=== PATIENT | male | born 1955 ===

== ENCOUNTER 2018-10-05 19:02 | Inpatient (IN) ==
[2018-10-05] MEDS ORDERED: SODIUM CHLORIDE 0.9% 1000ML 1,000 ML IV SCH (20:00)
--- NOTE | 2018-10-05 20:20 | XRay Report ---
XR chest 1V portable CLINICAL HISTORY: weakness COMPARISON STUDY: No previous studies for comparison. FINDINGS: A catheter projects over the right lower neck, right hemithorax and right upper quadrant. L carleen volumes are mildly diminished. There is no pneumothorax or pleural effusion. There is no consolid ation or evidence for pulmonary edema. There is mild cardiomegaly. There are several old left rib fra ctures. IMPRESSION: 1. No acute cardiopulmonary findings. 2. Mild cardiomegaly. Electronically signed by: Phillip Cifuentes M.D. 10/05/2018 8:19 PM
[2018-10-05 20:22] LABS: Basophils # (auto) 0.08 K/uL (0-0.2); Basophils % (auto) 0.9 %; Eosinophils # (auto) 0.26 K/uL (0-0.5); Eosinophils % (auto) 3.1 %; Hematocrit (blood only) 36.7 % (42-52); Hemoglobin 12.3 g/dL (14.0-18.0); Immature Granulocytes # (auto) 0.01 K/uL (0.00-0.02); Immature Granulocytes % (auto) 0.1 %; Lymphocytes # (auto) 1.58 K/uL (1.2-3.4); Lymphocytes % (auto) 18.6 %; Mean Corpuscular Hgb Conc 33.5 g/dL (32-36); Mean Corpuscular Volume 83.8 fL (80-100); Mean Platelet Volume 10.8 fL (7.4-10.4); Monocytes % (auto) 7.1 %; Neutrophils # (auto) 5.95 K/uL (1.4-6.5); Neutrophils % (auto) 70.2 %; Platelet Count 273 K/uL (130-400); RDW Coefficient of Variation 13.7 % (11.5-14.5); RDW Standard Deviation 41.3 fL (36.4-46.3); Red Blood Count 4.38 M/uL (4.7-6.1); White Blood Count 8.48 K/uL (4.8-10.8)
[2018-10-05 20:35] LABS: Albumin Level 3.6 gm/dl (3.4-5.0); BUN Creatinine Ratio 19.3 (10-20); Calcium 9.7 mg/dl (8.5-10.1); Creatinine Clr Calc Pharmacy 66.8 ml/min; Est GFR (African American) 65.2; Est GFR (Non-African American) 56.3; Magnesium 1.5 mg/dl (1.8-2.4); Potassium 4.5 mmol/L (3.5-5.1)
[2018-10-05 20:37] LABS: Prothrombin Time 10.7 Seconds (9.0-12.0)
[2018-10-05 20:45] LABS: Albumin Globulin Ratio 0.9 (0.9-2); Bilirubin,Total 0.4 mg/dl (0.2-1); Globulin 4.1 gm/dl (2.5-4.0); Total Protein 7.7 gm/dl (6.4-8.2); Troponin I 0.023 ng/ml (0-0.045)
[2018-10-05 20:58] LABS: T4 Free Thyroxine 1.38 ng/dl (0.8-1.6)
--- NOTE | 2018-10-05 21:24 | CT Scan Report ---
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 CT DOSE: 638.56 mGycm TECHNIQUE: Helical axial images of the head were obtained without IV contrast. Automated exposure con trol was utilized for the study. A dose lowering technique was utilized adhering to the principles o f ALARA. FINDINGS: No acute intracranial hemorrhage, midline shift or mass effect is present. A right parietal ventriculostomy catheter is in place. Catheter traverses the right lateral ventricle. The tip projec ts over the medial right frontal lobe. There is moderate ventricular dilatation. There are no finding s to suggest acute dural sinus thrombosis or acute territorial infarct. Mild atrophy is noted. There is no calvarial fracture. IMPRESSION: 1. No acute intracranial hemorrhage. 2. Right parietal [employer]IP[employer] SOFTWARE ENGINE[employer] shunt traverses the right lateral ventricle and tip projects over anterior medi al right frontal lobe. Moderate ventricular dilatation; however, only mildly out of proportion to sul thai enlargement. Correlation with prior head CT, if available, would be of benefit. 3. White matter hypodensities which are nonspecific but favor small vessel disease. Electronically signed by: Phillip Cifuentes M.D. 10/05/2018 9:23 PM
[2018-10-05 21:29] LABS: Appearance Urine Clear (Clear); Bacteria Urine Automated Negative (Negative); Bilirubin Urine Negative (Negative); Blood Urine Negative (Negative); Color Urine Yellow; Epithelial Cell Urine Auto >30 /lpf (0-5); Glucose Urine UA Trace (Negative); Ketones Urine Trace (Negative); Leukocyte Esterase Urine Trace (Negative); Nitrite Urine Negative (Negative); Protein Urine 1+ (Negative); RBC Urine Automated 0-4 /hpf (0-4); Specific Gravity Urine 1.024 (1.000-1.030); Urobilinogen Urine Negative (Negative)
--- NOTE | 2018-10-05 21:53 | History & Physical Report ---
Date of Service October 05, 2018 Assessment & Plan (1) Heart block: (2) Seizure: (3) Normal pressure hydrocephalus: (4) DM II (diabetes mellitus, type II), controlled: (5) BPH (benign prostatic hyperplasia): (6) UTI (urinary tract infection): (7) HTN (hypertension): (8) Diabetic neuropathy: (9) Falls: (10) Stool incontinence: (11) Urine retention: History of Present Illness Chief Complaint: Suspected seizure Primary Care Provider: NO PCP 63-year-old male with a past medical history of diabetes, hydrocephalus, seizure disorder per ER doc but I do not see any seizure medications on board, UTI and sepsis, iron deficiency anemia, benign prostatic hypertrophy, diabetes, hypertension, urine retention, stool incontinence, who presents the emergency room tonight from [facility] for suspected seizure and was found to be in heart block. The patient is a poor historian, old records revealed that he was in [facility] after a bout of UTI and sepsis and was getting physical therapy and occupational therapy for ADLs. He lives with his brother and used to be independent with his ADLs. Currently he needs a walker to walk. 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 Continue outpatient medications where appropriate, seizure precautions, Ativan as needed seizures. DVT prophylaxis, insulin sliding scale, straight cath twice daily, PT OT eval. ROS-No Headache, No Visual Changes, No Fever, No Chills, No Neck Pain or Stiffness, No Chest Pain, No Palpitations, No SOB, No FLORES, No Cough, No Sputum, No Wheezing, No Abdominal Pain, No Diarrhea, No Hematemesis, No Hemoptysis, No Unexpected Weight Loss, No Flank pain, No Melena, No Hematochezia, No Frequency, No Urgency, No Burning, No Hematuria, No Rashes, No Diaphoresis. Appetite is Normal Physical Exam Gen-AAO x 1, NAD, Afebrile, Pleasant Head-NCAT, EOMI, PERRLA, Anicteric Sclera, No Posterior Pharyngeal Erythema Neck-Supple, No JVD, No Thyromegaly, No Masses, No LAD, No Bruits Lungs-Clear to Auscultation Bilaterally, No Rales, No Rhonchi, No Wheezing, No Crepitus Chest-No S4, +S1, +S2, No S3, No Murmurs, No Rubs, No Gallops, No Ectopy Abdomen-Soft, Bowel Sounds Present, Non Tender, Non Distended, No Hepatomegaly, No Splenomegaly, No Palpable Masses, No Rebound, No Rigidity, No Guarding Musculoskeletal-Full Range of Motion Bilaterally, No CVAT Extremities-No Cyanosis, No Clubbing, No Edema Nuero-Cranial Nerves II-XII grossly intact, Motor WNL, DTRs WNL, Strength WNL, No Focal Psych-Normal Mood PMH-benign prostatic hypertrophy, diabetes, diabetic neuropathy, frequent falls, hypertension, normal pressure hydrocephalus, UTI and sepsis. 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 Meds reviewed and Reconciled Labs Reviewed Allergies Allergy/AdvReac Type Severity Reaction Status Date / Time tamsulosin Allergy Unknown Unknown Verified 10/05/18 21:35 Home Medications Home Medications Medication Instructions Recorded Confirmed Type acetaminophen 500 mg PO Q4H PRN 10/05/18 10/05/18 History aspirin 81 mg PO DAILY 10/05/18 10/05/18 History bisacodyl 10 mg ME DAILY PRN 10/05/18 10/05/18 History cefuroxime axetil 500 mg PO Q12H 10/05/18 10/05/18 History cholecalciferol (vitamin D3) 5,000 units PO DAILY 10/05/18 10/05/18 History [Vitamin D3] cyanocobalamin (vitamin B-12) 1,000 mcg PO DAILY 10/05/18 10/05/18 History dextrose [Glucose Gel] 1 tube PO DIRECTED PRN 10/05/18 10/05/18 History docusate sodium 100 mg PO BID PRN 10/05/18 10/05/18 History ferrous sulfate 325 mg PO DAILY 10/05/18 10/05/18 History finasteride 5 mg PO DAILY 10/05/18 10/05/18 History glipizide 5 mg PO DAILY 10/05/18 10/05/18 History glucagon (human recombinant) 1 mg SUBCUT DIRECTED PRN 10/05/18 10/05/18 History [Glucagon Emergency Kit (human)] heparin (porcine) 5,000 unit SUBCUT Q12H 10/05/18 10/05/18 History insulin aspart U-100 [Novolog 1 sliding scale dose SUBCUT ACHS 10/05/18 10/05/18 History U-100 Insulin aspart] lisinopril 40 mg PO DAILY 10/05/18 10/05/18 History magnesium hydroxide [Milk Of 30 ml PO DAILY PRN 10/05/18 10/05/18 History Magnesia Concentrated] metformin 850 mg PO QAM 10/05/18 10/05/18 History polyethylene glycol 3350 [Miralax] 17 g PO DAILY PRN 10/05/18 10/05/18 History sennosides-docusate sodium 1 tab PO DAILY 10/05/18 10/05/18 History [Senokot-S] sodium phosphates [Fleet Enema] 133 ml ME DAILY PRN 10/05/18 10/05/18 History Past Med/Surg History Medical History Seizure (Chronic) Social History Feels Safe at Home: Yes Smoking Status: Unknown if ever smoked Physical Exam Vital Signs (Past 24 Hours): Last Vital Signs Pulse 62 10/05/18 21:16 Resp 24 10/05/18 21:16 BP 169/84 H 10/05/18 21:16 Pulse Ox 99 10/05/18 21:16
[2018-10-05 22:29] LABS: Lyme Ab IgG w/WB Rflx Negative (Negative); Lyme Ab IgM w/WB Rflx Negative (Negative)
[2018-10-05] MEDS ORDERED: LORazepam 0.5 MG/1 ML VIAL IV PRN (23:48)
[2018-10-05] MEDS ORDERED: SOD PHOSPHATE/SOD BIPHOSPHATE ENEMA 132 ML BTL PR PRN (23:48)
[2018-10-05] MEDS ORDERED: CARBOHYDRATES FOR HYPOGLYCEMIA PO PRN (23:48)
[2018-10-05] MEDS ORDERED: GLUCAGON FOR INJ 1 MG VIAL SQ PRN (23:48)
[2018-10-05] MEDS ORDERED: POLYETHYLENE (MIRALAX) 17 GM PACK PO PRN (23:48)
[2018-10-05] MEDS ORDERED: BISACODYL 10 MG SUPP PR PRN (23:48)
[2018-10-05] MEDS ORDERED: ACETAMINOPHEN 500 MG TAB PO PRN (23:48)
[2018-10-05] MEDS ORDERED: DOCUSATE SODIUM 100 MG CAP PO PRN (23:48)
[2018-10-05] MEDS ORDERED: DEXTROSE 50% 50 ML SYRINGE IV PRN (23:48)
[2018-10-05] MEDS ORDERED: MAGNESIUM HYDROXIDE SUSP 30 ML UDC PO PRN (23:48)
[2018-10-05] MEDS ORDERED: GLUCOSE 40% GEL 15 GM TUBE PO PRN (23:48)
[2018-10-05] MEDS ORDERED: GLUCOSE 10 TABS/TUBE PO PRN (23:48)
--- NOTE | 2018-10-06 01:27 | Emergency Department Note ---
Entered by Cinthya Vergara acting as a scribe for ED Provider Note CHIEF COMPLAINT: Seizure-like episode HISTORY OF PRESENT ILLNESS: The patient is a 63 year old male who presents to the Emergency Room via EMS following a seizure-like episode that occurred prior to arrival. Per EMS, the episode occurred at [facility] and lasted 7 minutes. EMS also reports that during this episode the patient had garbled speech and was unresponsive and shaking. EMS notes that he has a history of seizures. Per EMS, the patients BSG was 146 prior to arrival. The patient denies any chest pain, headaches, neck pain, back pain, weakness, numbness, abdominal pain, leg pain, urinary symptoms, abnormal bowel movements. [facility] records reviewed: The patient was thereafter recovering from sepsis from a UTI. REVIEW OF SYSTEMS: Both HPI and ROS are both limited secondary to altered mental status. PMHx/PSHx: Seizures SOCIAL HISTORY: Unknown. PHYSICAL EXAM: GENERAL: Awake, alert, well-appearing, in no distress HENT: Normocephalic, atraumatic. Oropharynx unremarkable. EYES: Normal conjunctiva. Sclera non-icteric. NECK: Inspection normal. Non-tender. Supple. No nuchal rigidity. FROM. No masses. RESPIRATORY: Clear to auscultation. No wheezes. No rales. Normal respiratory effort. CARDIAC: Bradycardic. No murmurs. No rubs. Extremities warm and well perfused. Pulses equal. No JVD. GI: Soft, non-distended. No tenderness to palpation. No rebound or guarding. No masses. RECTAL: Deferred. MUSCULOSKELETAL: Atraumatic. Chest examination reveals no tenderness. The back is symmetrical on inspection without obvious abnormality. There is no CVA tenderness to palpation. No joint edema. LOWER EXTREMITIES: Calves are equal size bilaterally and non-tender. No edema. No discoloration. NEURO: Soft speech, slow to respond but able to answer all questions. 4/5 strength in upper and lower extremities. SKIN: No rash or jaundice noted. EMERGENCY DEPARTMENT COURSE: 1935: Past medical records reviewed. The patient was evaluated in room C10, and a complete history and physical examination were performed. 2029: I reviewed the patient's case with Dr. Cancino - Cardiology. He will call back after viewing the patient's EKG. 2048: I reviewed the patient's case with Dr. Cancino - Cardiology. He recommends admission of the patient for further cardiology workup. 2115: I reviewed the patient's case with Dr. Chaves - [facility] Hospitalist. He will evaluate the patient for further management. MEDICAL DECISION MAKING: Patient placed in seizure precautions immediately upon arrival. Nursing notes reviewed and agree them. The patient's history was concerning for a possible seizure. Differential diagnosis: Etiologies such as infection, hypoglycemia, electrolyte abnormalities, cardiac sources, intracerebral event, trauma, toxicologic, neurologic, as well as others were entertained. Physical examination: As above. No signs of trauma. ER treatment provided: Cardiac monitoring Pacer pads Saline hydration On reassessment the patient felt better. Diagnostics interpretation by me: ECG: Concerning for A-V dissociation and heart block. The patient was not significantly bradycardic. He was hemodynamically stable. The labs revealed an unremarkable CBC and chemistry panel except for mild anemia. Urinalysis did not reveal any clear signs of infection. Troponin negative. Imaging studies: Head CT and chest x-ray without acute findings. Consultation: Consultation was placed with cardiology as well as internal medicine. As the patient is hemodynamically stable he will be monitored for this heart block. Cardiology will consult on him. Internal medicine will follow the patient. IMPRESSION: Seizure, Heart block PLAN: Being evaluated by hospitalist. The scribe's documentation has been prepared under my direction and personally reviewed by me in its entirety. I confirm that the note above accurately reflects all work, treatment, procedures, and medical decision making performed by me. Impression & Plan Seizure, Heart block (Ruled Out): Generalized seizure Past Med/Surg History Medical History Seizure (Chronic) Social History Preferred Language: Azeri Communication Ability: Effective [employer] Layout Required: No Beliefs That Will Affect Care: None Current Living Situation: Rehab Other Information That Helps Us Care for You: No Feels Safe at Home: Yes Safety Concerns: Feels Safe At This Time Smoking Status: Never smoker Hx Alcohol Use: No Hx Substance Use: No Results & Data Vital Signs Vital Signs - 24 hr 10/05/18 19:09 10/05/18 19:10 10/05/18 19:14 Temperature Temperature Source Sepsis Recent Fever Within 48 Hours No Sepsis New/Unexplained Change in Mental Status Yes Sepsis Action Taken by Nursing No Action Required Pulse Rate 52 L 54 L 52 L Pulse Rate [Right Finger] Pulse Rate from SpO2 Sensor 52 L 54 L Pulse Rhythm Regular Pulse Strength Normal Respiratory Rate 18 18 21 Respiratory Effort / Characteristics Non-Labored Respiratory Depth Normal Respiratory Pattern Regular Blood Pressure 163/77 H 163/77 H Blood Pressure [Right Arm] Blood Pressure Mean 105 105 Blood Pressure Mean [Right Arm] Blood Pressure Position Lying Blood Pressure Position [Right Arm] Pulse Oximetry 99 98 96 Oxygen Delivery Method Room Air 10/05/18 19:30 10/05/18 20:00 10/05/18 20:30 Temperature Temperature Source Sepsis Recent Fever Within 48 Hours Sepsis New/Unexplained Change in Mental Status Sepsis Action Taken by Nursing Pulse Rate 53 L 57 L 56 L Pulse Rate [Right Finger] Pulse Rate from SpO2 Sensor 53 L 55 L 57 L Pulse Rhythm Pulse Strength Respiratory Rate 17 24 18 Respiratory Effort / Characteristics Respiratory Depth Respiratory Pattern Blood Pressure Blood Pressure [Right Arm] Blood Pressure Mean Blood Pressure Mean [Right Arm] Blood Pressure Position Blood Pressure Position [Right Arm] Pulse Oximetry 98 98 100 Oxygen Delivery Method 10/05/18 20:37 10/05/18 20:39 10/05/18 21:10 Temperature Temperature Source Sepsis Recent Fever Within 48 Hours Sepsis New/Unexplained Change in Mental Status Sepsis Action Taken by Nursing Pulse Rate 56 L 66 Pulse Rate [Right Finger] 57 L Pulse Rate from SpO2 Sensor 57 L Pulse Rhythm Pulse Strength Respiratory Rate 22 16 31 H Respiratory Effort / Characteristics Respiratory Depth Respiratory Pattern Blood Pressure 146/82 H Blood Pressure [Right Arm] 146/82 H Blood Pressure Mean 103 Blood Pressure Mean [Right Arm] 103 Blood Pressure Position Blood Pressure Position [Right Arm] Pulse Oximetry 96 100 Oxygen Delivery Method 10/05/18 21:16 10/05/18 21:30 10/05/18 21:31 Temperature Temperature Source Sepsis Recent Fever Within 48 Hours Sepsis New/Unexplained Change in Mental Status Sepsis Action Taken by Nursing Pulse Rate 61 62 61 Pulse Rate [Right Finger] 62 Pulse Rate from SpO2 Sensor 60 60 62 Pulse Rhythm Pulse Strength Respiratory Rate 28 H 10 L 8 L Respiratory Effort / Characteristics Non-Labored Respiratory Depth Normal Respiratory Pattern Regular Blood Pressure 169/84 H 123/67 Blood Pressure [Right Arm] 169/84 H Blood Pressure Mean 112 85 Blood Pressure Mean [Right Arm] 112 Blood Pressure Position Blood Pressure Position [Right Arm] Pulse Oximetry 92 78 L 96 Oxygen Delivery Method Room Air 10/05/18 22:00 10/05/18 22:01 10/05/18 23:08 Temperature Temperature Source Sepsis Recent Fever Within 48 Hours Sepsis New/Unexplained Change in Mental Status Sepsis Action Taken by Nursing Pulse Rate 59 L 59 L 58 L Pulse Rate [Right Finger] Pulse Rate from SpO2 Sensor 57 L 61 Pulse Rhythm Pulse Strength Respiratory Rate 18 15 18 Respiratory Effort / Characteristics Respiratory Depth Respiratory Pattern Blood Pressure 125/64 150/78 H Blood Pressure [Right Arm] Blood Pressure Mean 84 Blood Pressure Mean [Right Arm] Blood Pressure Position Blood Pressure Position [Right Arm] Pulse Oximetry 92 93 96 Oxygen Delivery Method Room Air 10/05/18 23:20 10/05/18 23:48 Temperature 36.2 C L Temperature Source Oral Sepsis Recent Fever Within 48 Hours Sepsis New/Unexplained Change in Mental Status Sepsis Action Taken by Nursing Pulse Rate Pulse Rate [Right Finger] 59 L Pulse Rate from SpO2 Sensor Pulse Rhythm Pulse Strength Respiratory Rate 16 Respiratory Effort / Characteristics Non-Labored Respiratory Depth Normal Normal Respiratory Pattern Blood Pressure Blood Pressure [Right Arm] 118/70 Blood Pressure Mean Blood Pressure Mean [Right Arm] 86 Blood Pressure Position Blood Pressure Position [Right Arm] Semi-fowlers Pulse Oximetry 100 Oxygen Delivery Method Room Air Room Air Home Medications Current Medication List: was personally reviewed by me Laboratory Data Attestation: I reviewed the patient's lab results. Result diagrams: 10/05/18 20:06 10/05/18 20:06 Lab Results 10/05/18 10/05/18 10/05/18 Range/Units 20:06 20:06 20:06 WBC 8.48 (4.8-10.8) K/uL RBC 4.38 L (4.7-6.1) M/uL Hgb 12.3 L (14.0-18.0) g/dL Hct 36.7 L (42-52) % MCV 83.8 (80-100) fL MCH 28.1 (25-34) pg MCHC 33.5 (32-36) g/dL RDW Std Deviation 41.3 (36.4-46.3) fL RDW Coeff of Hollie 13.7 (11.5-14.5) % Plt Count 273 (130-400) K/uL MPV 10.8 H (7.4-10.4) fL Immature Gran % (Auto) 0.1 % Neut % (Auto) 70.2 % Lymph % (Auto) 18.6 % Starke % (Auto) 7.1 % Eos % (Auto) 3.1 % Baso % (Auto) 0.9 % Immature Gran # (Auto) 0.01 (0.00-0.02) K/uL Neut # (Auto) 5.95 (1.4-6.5) K/uL Lymph # (Auto) 1.58 (1.2-3.4) K/uL Starke # (Auto) 0.60 H (0.11-0.59) K/uL Eos # (Auto) 0.26 (0-0.5) K/uL Baso # (Auto) 0.08 (0-0.2) K/uL PT 10.7 (9.0-12.0) Seconds INR 1.0 (0.9-1.1) Sodium 137 (136-145) mmol/L Potassium 4.5 (3.5-5.1) mmol/L Chloride 105 (98-107) mmol/L Carbon Dioxide 24 (21-32) mmol/L Anion Gap 8.0 (3-11) BUN 26 H (7-18) mg/dl Creatinine 1.35 (0.6-1.4) mg/dl Est Cr Clr Drug Dosing 66.8 ml/min Est GFR ( Amer) 65.2 Est GFR (Non-Af Amer) 56.3 BUN/Creatinine Ratio 19.3 (10-20) Glucose 147 H (70-99) mg/dl POC Glucose (70-99) Calcium 9.7 (8.5-10.1) mg/dl Magnesium 1.5 L (1.8-2.4) mg/dl Total Bilirubin 0.4 (0.2-1) mg/dl AST 20 (15-37) U/L ALT 23 (12-78) U/L Alkaline Phosphatase 67 (45-117) U/L Troponin I 0.023 (0-0.045) ng/ml Total Protein 7.7 (6.4-8.2) gm/dl Albumin 3.6 (3.4-5.0) gm/dl Globulin 4.1 H (2.5-4.0) gm/dl Albumin/Globulin Ratio 0.9 (0.9-2) TSH 5.580 H (0.300-4.500) uIu/ml Free T4 1.38 (0.8-1.6) ng/dl Thyroxine (T4) (4.5-10.9) mcg/dl Urine Color Urine Appearance (Clear) Urine pH (4.5-7.5) Ur Specific Verner (1.000-1.030) Urine Protein (Negative) Urine Glucose (UA) (Negative) Urine Ketones (Negative) Urine Blood (Negative) Urine Nitrite (Negative) Urine Bilirubin (Negative) Urine Urobilinogen (Negative) Ur Leukocyte Esterase (Negative) Urine WBC (Auto) (0-5) /hpf Urine RBC (Auto) (0-4) /hpf U Hyaline Cast (Auto) (0-5) /lpf U Epithel Cells (Auto) (0-5) /lpf Urine Bacteria (Auto) (Negative) Ur Renal Epithelial Cell Lyme Disease IgG Ab (Negative) Lyme Disease IgM Ab (Negative) 10/05/18 10/05/18 10/05/18 Range/Units 20:08 20:08 20:37 WBC (4.8-10.8) K/uL RBC (4.7-6.1) M/uL Hgb (14.0-18.0) g/dL Hct (42-52) % MCV (80-100) fL MCH (25-34) pg MCHC (32-36) g/dL RDW Std Deviation (36.4-46.3) fL RDW Coeff of Hollie (11.5-14.5) % Plt Count (130-400) K/uL MPV (7.4-10.4) fL Immature Gran % (Auto) % Neut % (Auto) % Lymph % (Auto) % Starke % (Auto) % Eos % (Auto) % Baso % (Auto) % Immature Gran # (Auto) (0.00-0.02) K/uL Neut # (Auto) (1.4-6.5) K/uL Lymph # (Auto) (1.2-3.4) K/uL Starke # (Auto) (0.11-0.59) K/uL Eos # (Auto) (0-0.5) K/uL Baso # (Auto) (0-0.2) K/uL PT (9.0-12.0) Seconds INR (0.9-1.1) Sodium (136-145) mmol/L Potassium (3.5-5.1) mmol/L Chloride (98-107) mmol/L Carbon Dioxide (21-32) mmol/L Anion Gap (3-11) BUN (7-18) mg/dl Creatinine (0.6-1.4) mg/dl Est Cr Clr Drug Dosing ml/min Est GFR ( Amer) Est GFR (Non-Af Amer) BUN/Creatinine Ratio (10-20) Glucose (70-99) mg/dl POC Glucose (70-99) Calcium (8.5-10.1) mg/dl Magnesium (1.8-2.4) mg/dl Total Bilirubin (0.2-1) mg/dl AST (15-37) U/L ALT (12-78) U/L Alkaline Phosphatase (45-117) U/L Troponin I (0-0.045) ng/ml Total Protein (6.4-8.2) gm/dl Albumin (3.4-5.0) gm/dl Globulin (2.5-4.0) gm/dl Albumin/Globulin Ratio (0.9-2) TSH (0.300-4.500) uIu/ml Free T4 (0.8-1.6) ng/dl Thyroxine (T4) 10.2 (4.5-10.9) mcg/dl Urine Color Yellow Urine Appearance Clear (Clear) Urine pH 5.0 (4.5-7.5) Ur Specific Verner 1.024 (1.000-1.030) Urine Protein 1+ H (Negative) Urine Glucose (UA) Trace H (Negative) Urine Ketones Trace H (Negative) Urine Blood Negative (Negative) Urine Nitrite Negative (Negative) Urine Bilirubin Negative (Negative) Urine Urobilinogen Negative (Negative) Ur Leukocyte Esterase Trace H (Negative) Urine WBC (Auto) 10-30 H (0-5) /hpf Urine RBC (Auto) 0-4 (0-4) /hpf U Hyaline Cast (Auto) 1-5 (0-5) /lpf U Epithel Cells (Auto) >30 H (0-5) /lpf Urine Bacteria (Auto) Negative (Negative) Ur Renal Epithelial Cell Not Reportable Lyme Disease IgG Ab Negative (Negative) Lyme Disease IgM Ab Negative (Negative) 10/06/18 Range/Units 00:10 WBC (4.8-10.8) K/uL RBC (4.7-6.1) M/uL Hgb (14.0-18.0) g/dL Hct (42-52) % MCV (80-100) fL MCH (25-34) pg MCHC (32-36) g/dL RDW Std Deviation (36.4-46.3) fL RDW Coeff of Hollie (11.5-14.5) % Plt Count (130-400) K/uL MPV (7.4-10.4) fL Immature Gran % (Auto) % Neut % (Auto) % Lymph % (Auto) % Starke % (Auto) % Eos % (Auto) % Baso % (Auto) % Immature Gran # (Auto) (0.00-0.02) K/uL Neut # (Auto) (1.4-6.5) K/uL Lymph # (Auto) (1.2-3.4) K/uL Starke # (Auto) (0.11-0.59) K/uL Eos # (Auto) (0-0.5) K/uL Baso # (Auto) (0-0.2) K/uL PT (9.0-12.0) Seconds INR (0.9-1.1) Sodium (136-145) mmol/L Potassium (3.5-5.1) mmol/L Chloride (98-107) mmol/L Carbon Dioxide (21-32) mmol/L Anion Gap (3-11) BUN (7-18) mg/dl Creatinine (0.6-1.4) mg/dl Est Cr Clr Drug Dosing ml/min Est GFR ( Amer) Est GFR (Non-Af Amer) BUN/Creatinine Ratio (10-20) Glucose (70-99) mg/dl POC Glucose 202 H (70-99) Calcium (8.5-10.1) mg/dl Magnesium (1.8-2.4) mg/dl Total Bilirubin (0.2-1) mg/dl AST (15-37) U/L ALT (12-78) U/L Alkaline Phosphatase (45-117) U/L Troponin I (0-0.045) ng/ml Total Protein (6.4-8.2) gm/dl Albumin (3.4-5.0) gm/dl Globulin (2.5-4.0) gm/dl Albumin/Globulin Ratio (0.9-2) TSH (0.300-4.500) uIu/ml Free T4 (0.8-1.6) ng/dl Thyroxine (T4) (4.5-10.9) mcg/dl Urine Color Urine Appearance (Clear) Urine pH (4.5-7.5) Ur Specific Verner (1.000-1.030) Urine Protein (Negative) Urine Glucose (UA) (Negative) Urine Ketones (Negative) Urine Blood (Negative) Urine Nitrite (Negative) Urine Bilirubin (Negative) Urine Urobilinogen (Negative) Ur Leukocyte Esterase (Negative) Urine WBC (Auto) (0-5) /hpf Urine RBC (Auto) (0-4) /hpf U Hyaline Cast (Auto) (0-5) /lpf U Epithel Cells (Auto) (0-5) /lpf Urine Bacteria (Auto) (Negative) Ur Renal Epithelial Cell Lyme Disease IgG Ab (Negative) Lyme Disease IgM Ab (Negative) Administered Medications Discontinued Medications Sodium Chloride (Nss 1000ml) 1,000 mls @ 999 mls/hr IV .Q1H1M HERNANDEZ Stop: 10/05/18 21:00 Last Infusion: 10/05/18 21:46 Dose: 0 mls/hr Documented by: [id number] Admin: 10/05/18 20:42 Dose: 999 mls/hr Documented by: [id number] Imaging Data Radiologist's Impression: Radiology results as stated below per my review and the radiologist's interpretation: XR chest 1V portable CLINICAL HISTORY: weakness COMPARISON STUDY: No previous studies for comparison. FINDINGS: A catheter projects over the right lower neck, right hemithorax and right upper quadrant. Lung volumes are mildly diminished. There is no pneumothorax or pleural effusion. There is no consolidation or evidence for pulmonary edema. There is mild cardiomegaly. There are several old left rib fractures. IMPRESSION: 1. No acute cardiopulmonary findings. 2. Mild cardiomegaly. Electronically signed by: Phillip Cifuentes M.D. 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 CT DOSE: 638.56 mGycm TECHNIQUE: Helical axial images of the head were obtained without IV contrast. Automated exposure control was utilized for the study. A dose lowering technique was utilized adhering to the principles of ALARA. FINDINGS: No acute intracranial hemorrhage, midline shift or mass effect is present. A right parietal ventriculostomy catheter is in place. Catheter traverses the right lateral ventricle. The tip projects over the medial right frontal lobe. There is moderate ventricular dilatation. There are no findings to suggest acute dural sinus thrombosis or acute territorial infarct. Mild atrophy is noted. There is no calvarial fracture. IMPRESSION: 1. No acute intracranial hemorrhage. 2. Right parietal [employer]ON[employer] shunt traverses the right lateral ventricle and tip projects over anterior medial right frontal lobe. Moderate ventricular dilatati on; however, only mildly out of proportion to sulcal enlargement. Correlation with prior head CT, if available, would be of benefit. 3. White matter hypodensities which are nonspecific but favor small vessel disease. Electronically signed by: Phillip Cifuentes M.D. 10/05/2018 9:23 PM ECG Data Attestation: I personally reviewed and interpreted this ECG as follows: Indication: syncope Rate (beats per minute): 53 Rhythm: AV dissociation and junctional Findings: no ST depression and no ST elevation Blood Pressure Blood Pressure Findings: Elevated blood pressure Blood Pressure Disposition: further management by hospitalist Discharge Plan Visit Data *Final* Discharge Date/Time: 10/05/18 23:08 Chief Complaint: Seizure ED Provider: Miguel Cool Discharge Problem: Seizure, Heart block Discharge Problem: (Ruled Out): Generalized seizure Patient Disposition: Admitted As Inpatient Discharge Instructions Interventions: ED Discharge Assessment Last Done: 10/05/18 23:08 The scribe's documentation has been prepared under my direction and personally reviewed by me in its entirety. I confirm that the note above accurately reflects all work, treatment, procedures, and medical decision making performed by me.
[2018-10-06] MEDS ORDERED: PHARMACY GLYCEMIC MGMT CONSULT PRN (01:44)
[2018-10-06] MEDS: cefTRIAXone SODIUM 1,000 MG in DEXTROSE 5% 50 ML IV SCH (02:26)
[2018-10-06] MEDS: MAGNESIUM OXIDE 400 MG TAB PO SCH ×3 (02:27→20:43)
[2018-10-06] MEDS: INSULIN ASPART 100 UNITS/ML 3 ML PEN SC SCH ×5 (02:28→20:42)
[2018-10-06 05:44] LABS: Hematocrit (blood only) 33.8 % (42-52); Hemoglobin 11.3 g/dL (14.0-18.0); Mean Corpuscular Hgb Conc 33.4 g/dL (32-36); Mean Corpuscular Volume 83.5 fL (80-100); Mean Platelet Volume 10.6 fL (7.4-10.4); Platelet Count 272 K/uL (130-400); RDW Coefficient of Variation 13.7 % (11.5-14.5); RDW Standard Deviation 41.8 fL (36.4-46.3); Red Blood Count 4.05 M/uL (4.7-6.1); White Blood Count 6.79 K/uL (4.8-10.8)
[2018-10-06] MEDS: HEPARIN SOD 5,000 UNIT/0.5 ML VIAL SQ SCH ×3 (06:02→20:43)
[2018-10-06 06:25] LABS: BUN Creatinine Ratio 24.6 (10-20); Calcium 8.8 mg/dl (8.5-10.1); Creatinine Clr Calc Pharmacy 91.6 ml/min; Est GFR (African American) 89.4; Est GFR (Non-African American) 77.1; Potassium 4.1 mmol/L (3.5-5.1)
[2018-10-06 06:43] LABS: Estimated Average Glucose 154 mg/dl
[2018-10-06] MEDS: ASPIRIN 81 MG ECTAB PO SCH (08:41)
[2018-10-06] MEDS: CYANOCOBALAMIN 500 MCG TABLET (VITAMIN B-12) PO SCH (08:41)
[2018-10-06] MEDS: FERROUS SULFATE 325 MG TAB PO SCH (08:41)
[2018-10-06] MEDS: LISINOPRIL 40 MG TAB PO SCH (08:41)
[2018-10-06] MEDS: FINASTERIDE 5 MG TAB PO SCH (08:42)
[2018-10-06] MEDS: DOCUSATE SODIUM/SENNA 50/8.6MG TAB PO SCH (08:42)
[2018-10-06] MEDS: CHOLECALCIFEROL 1,000 UNITS TAB PO SCH (08:42)
[2018-10-06] MEDS ORDERED: MAGNESIUM SULFATE / D5W 1 GM/100 ML BAG IV ONE (10:00)
--- NOTE | 2018-10-06 11:14 | Procedure Note ---
EEG Procedure Note Date of Service October 06, 2018 Start / End Times Start Time: 0745 End Time: 08 Referring Physician Miguel Diaz MD History possible seizure vs syncope in a man with new onset complete heart block and status pot remote [employer]GRAM [employer]GER shunt Home Medication List Home Medications Medication Instructions Recorded Confirmed Type acetaminophen 500 mg PO Q4H PRN 10/05/18 10/05/18 History aspirin 81 mg PO DAILY 10/05/18 10/05/18 History bisacodyl 10 mg IN DAILY PRN 10/05/18 10/05/18 History cefuroxime axetil 500 mg PO Q12H 10/05/18 10/05/18 History cholecalciferol (vitamin D3) 5,000 units PO DAILY 10/05/18 10/05/18 History [Vitamin D3] cyanocobalamin (vitamin B-12) 1,000 mcg PO DAILY 10/05/18 10/05/18 History dextrose [Glucose Gel] 1 tube PO DIRECTED PRN 10/05/18 10/05/18 History docusate sodium 100 mg PO BID PRN 10/05/18 10/05/18 History ferrous sulfate 325 mg PO DAILY 10/05/18 10/05/18 History finasteride 5 mg PO DAILY 10/05/18 10/05/18 History glipizide 5 mg PO DAILY 10/05/18 10/05/18 History glucagon (human recombinant) 1 mg SUBCUT DIRECTED PRN 10/05/18 10/05/18 History [Glucagon Emergency Kit (human)] heparin (porcine) 5,000 unit SUBCUT Q12H 10/05/18 10/05/18 History insulin aspart U-100 [Novolog 1 sliding scale dose SUBCUT ACHS 10/05/18 10/05/18 History U-100 Insulin aspart] lisinopril 40 mg PO DAILY 10/05/18 10/05/18 History magnesium hydroxide [Milk Of 30 ml PO DAILY PRN 10/05/18 10/05/18 History Magnesia Concentrated] metformin 850 mg PO QAM 10/05/18 10/05/18 History polyethylene glycol 3350 [Miralax] 17 g PO DAILY PRN 10/05/18 10/05/18 History sennosides-docusate sodium 1 tab PO DAILY 10/05/18 10/05/18 History [Senokot-S] sodium phosphates [Fleet Enema] 133 ml IN DAILY PRN 10/05/18 10/05/18 History Inpatient Medication List Aspirin (Ecotrin Ectab) 81 mg PO DAILY [facility] Stop: 11/05/18 08:59 Last Admin: 10/06/18 08:41 Dose: 81 mg Documented by: [id number] Cyanocobalamin (Vitamin B-12) 1,000 mcg PO DAILY [facility] Stop: 11/05/18 08:59 Last Admin: 10/06/18 08:41 Dose: 1,000 mcg Documented by: [id number] Ferrous Sulfate (Feosol) 325 mg PO DAILY [facility] Stop: 11/05/18 08:59 Last Admin: 10/06/18 08:41 Dose: 325 mg Documented by: [id number] Finasteride (Proscar) 5 mg PO DAILY [facility] Stop: 11/05/18 08:59 Last Admin: 10/06/18 08:42 Dose: 5 mg Documented by: [id number] Heparin Sodium (Porcine) (Heparin Sodium (Porcine)) 5,000 units SQ Q8 [facility] Stop: 11/05/18 05:59 Last Admin: 10/06/18 06:02 Dose: 5,000 units Documented by: [id number] Cosigned by: [id number] Ceftriaxone Sodium 1,000 mg/ (Dextrose) 50 mls @ 100 mls/hr IV Q24H [facility]; Protocol Stop: 10/16/18 01:59 Last Infusion: 10/06/18 03:30 Dose: 0 mls/hr Documented by: [id number] Admin: 10/06/18 02:26 Dose: 100 mls/hr Documented by: [id number] Insulin Aspart (Novolog Flexpen) 0 units SC ACHS [facility]; Protocol Stop: 11/05/18 01:44 Last Admin: 10/06/18 09:05 Dose: Not Given Documented by: [id number] Cosigned by: [id number] Admin: 10/06/18 02:28 Dose: 3 units Documented by: [id number] Cosigned by: [id number] Lisinopril (Zestril) 40 mg PO DAILY [facility] Stop: 11/05/18 08:59 Last Admin: 10/06/18 08:41 Dose: 40 mg Documented by: [id number] Magnesium Oxide (Mag-Ox) 400 mg PO BID [facility] Stop: 11/04/18 23:47 Last Admin: 10/06/18 08:42 Dose: 400 mg Documented by: [id number] Admin: 10/06/18 02:27 Dose: 400 mg Documented by: [id number] Senna/Docusate Sodium (Senokot S) 1 tab PO DAILY [facility] Stop: 11/05/18 08:59 Last Admin: 10/06/18 08:42 Dose: 1 tab Documented by: [id number] Vitamin D (Vitamin D3) 5,000 units PO DAILY [facility] Stop: 11/05/18 08:59 Last Admin: 10/06/18 08:42 Dose: 5,000 units Documented by: [id number] Discontinued Medications Sodium Chloride (Nss 1000ml) 1,000 mls @ 999 mls/hr IV .Q1H1M [facility] Stop: 10/05/18 21:00 Last Infusion: 10/05/18 21:46 Dose: 0 mls/hr Documented by: [id number] Admin: 10/05/18 20:42 Dose: 999 mls/hr Documented by: [id number] Description This is a 21 electrode EEG with a single channel dedicated to limited EKG. The electrodes were placed in accordance with the International 10-20 system. The study is done at the [facility] with no photic stimulation or hyperventilation and no clear evidence for drowsiness or sleep being seen Video recording captures movements and behavior throughout the tracing Overall the recording show a slow, symmetrical, posterior background rhythm in the upper theta range of upt to 8 HZ, a symmetrical central and temporal theta delta blend of modest amplitude wave forms and bifraontal low voltage fast activity in the beta range There is no evidence for any potentially epilepto genic activity Interpretation mildly to moderately diffusely slow eeg during wakefulness Clinical Correlation Mild to at most moderate generalized slowing without focal or regional predominance and without associated potentially epiliptogenic patterns is seen consistent with a nonspecific encephalopathy with no associated potential seizure activity Miguel Diaz MD
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
--- NOTE | 2018-10-06 13:59 | Cardiology Consultation ---
Date of Consultation October 06, 2018 Assessment & Plan (1) Normal pressure hydrocephalus: The patient has a history of progressive weakness and dementia related to his normal pressure hydrocephalus. (2) Heart block: It is possible that the patient's seizure activity was related to conduction disease of the heart. His heart block may be below the AV node even though it is mostly as wenkebach on telemetry. Before we would consider a pacemaker, I think the patient should be seen by palliative care to discuss goals of treatment with the family. I believe he may have a progressive neurologic disease that should be considered before placing a device. At this time, I do not believe that his progressive neurologic disease has resulted in his heart block that would resolve potentially with treatment of his neurologic disease. History of Present Illness Attending Physician: Carlos Chadwick MD History of Present Illness This is a 63-year-old male patient with normal pressure hydrocephalus status post shunt placement. He has a history of gait disturbance, weakness and dementia. Over the past several months he has had a progressive downhill course. He was admitted to [facility] with progressive weakness. He was then transferred over to [facility] for rehabilitation. Of note, while at [place], according to records he was seen by cardiology for heart block and it was determined he did not require pacemaker. While at [facility], he had what is described as a seizure. He was then transferred to this hospital for further evaluation and treatment. Neurology has evaluated him and they feel he is not having seizure activity. After admission here he is noted to have wenkebach on telemetry but also Mobitz type II block. On his EKG he does have a left anterior hemiblock. It is possible that his conduction abnormality may be below the AV node which would require pacemaker. The patient is not a great historian and therefore the information has been taken from the medical record. Allergies Allergy/AdvReac Type Severity Reaction Status Date / Time tamsulosin Allergy Unknown Unknown Verified 10/05/18 21:35 Home Medications Home Medications Medication Instructions Recorded Confirmed Type acetaminophen 500 mg PO Q4H PRN 10/05/18 10/05/18 History aspirin 81 mg PO DAILY 10/05/18 10/05/18 History bisacodyl 10 mg ME DAILY PRN 10/05/18 10/05/18 History cefuroxime axetil 500 mg PO Q12H 10/05/18 10/05/18 History cholecalciferol (vitamin D3) 5,000 units PO DAILY 10/05/18 10/05/18 History [Vitamin D3] cyanocobalamin (vitamin B-12) 1,000 mcg PO DAILY 10/05/18 10/05/18 History dextrose [Glucose Gel] 1 tube PO DIRECTED PRN 10/05/18 10/05/18 History docusate sodium 100 mg PO BID PRN 10/05/18 10/05/18 History ferrous sulfate 325 mg PO DAILY 10/05/18 10/05/18 History finasteride 5 mg PO DAILY 10/05/18 10/05/18 History glipizide 5 mg PO DAILY 10/05/18 10/05/18 History glucagon (human recombinant) 1 mg SUBCUT DIRECTED PRN 10/05/18 10/05/18 History [Glucagon Emergency Kit (human)] heparin (porcine) 5,000 unit SUBCUT Q12H 10/05/18 10/05/18 History insulin aspart U-100 [Novolog 1 sliding scale dose SUBCUT ACHS 10/05/18 10/05/18 History U-100 Insulin aspart] lisinopril 40 mg PO DAILY 10/05/18 10/05/18 History magnesium hydroxide [Milk Of 30 ml PO DAILY PRN 10/05/18 10/05/18 History Magnesia Concentrated] metformin 850 mg PO QAM 10/05/18 10/05/18 History polyethylene glycol 3350 [Miralax] 17 g PO DAILY PRN 10/05/18 10/05/18 History sennosides-docusate sodium 1 tab PO DAILY 10/05/18 10/05/18 History [Senokot-S] sodium phosphates [Fleet Enema] 133 ml ME DAILY PRN 10/05/18 10/05/18 History Patient History Medical History Seizure (Chronic) Social History Communication Ability: Effective Beliefs That Will Affect Care: None Current Living Situation: Rehab Other Information That Helps Us Care for You: No Feels Safe at Home: Yes Safety Concerns: Feels Safe At This Time Smoking Status: Never smoker Hx Alcohol Use: No Hx Substance Use: No Review of Systems Unobtainable Physical Exam Vital Signs (Past 24 Hours): Last Vital Signs Temp 36.8 C 10/06/18 11:27 Pulse 42 L 10/06/18 11:27 Resp 20 10/06/18 11:27 BP 145/80 H 10/06/18 11:27 Pulse Ox 99 10/06/18 11:27 Physical Exam: General: He is alert but cannot answer questions. Head: normocephalic, no masses, lesions, tenderness or abnormalities Eyes: conjunctiva are pink and non-injected, sclera clear Neck: supple, no adenopathy, no bruits, normal jugular venous pulse, no hepatojugular reflux Chest: normal shape and normal respiratory effort Lungs: clear to auscultation and percussion Cardiac Exam: - regular rate & rhythm, no murmurs gallops or rubs - normal S1, normal S2 Pulses: 2(+) throughout Abdomen: abdomen soft, non-tender, no abnormal masses and no hepatosplenomegaly Musculoskeletal: no gait disturbance, no joint inflammation, no deforming arthritis Extremities: no edema and no cyanosis Neuro: grossly normal exam Results & Data Laboratory Results Laboratory Results - last 24 hr 10/05/18 10/05/18 10/05/18 20:06 20:06 20:06 WBC 8.48 RBC 4.38 L Hgb 12.3 L Hct 36.7 L MCV 83.8 MCH 28.1 MCHC 33.5 RDW Std Deviation 41.3 RDW Coeff of Hollie 13.7 Plt Count 273 MPV 10.8 H Immature Gran % (Auto) 0.1 Neut % (Auto) 70.2 Lymph % (Auto) 18.6 Butts % (Auto) 7.1 Eos % (Auto) 3.1 Baso % (Auto) 0.9 Immature Gran # (Auto) 0.01 Neut # (Auto) 5.95 Lymph # (Auto) 1.58 Butts # (Auto) 0.60 H Eos # (Auto) 0.26 Baso # (Auto) 0.08 PT 10.7 INR 1.0 Sodium 137 Potassium 4.5 Chloride 105 Carbon Dioxide 24 Anion Gap 8.0 BUN 26 H Creatinine 1.35 Est Cr Clr Drug Dosing 66.8 Est GFR ( Amer) 65.2 Est GFR (Non-Af Amer) 56.3 BUN/Creatinine Ratio 19.3 Glucose 147 H POC Glucose Estimat Average Glucose Hemoglobin A1c Calcium 9.7 Magnesium 1.5 L Total Bilirubin 0.4 AST 20 ALT 23 Alkaline Phosphatase 67 Troponin I 0.023 Total Protein 7.7 Albumin 3.6 Globulin 4.1 H Albumin/Globulin Ratio 0.9 TSH 5.580 H Free T4 1.38 Thyroxine (T4) Urine Color Urine Appearance Urine pH Ur Specific [place] Urine Protein Urine Glucose (UA) Urine Ketones Urine Blood Urine Nitrite Urine Bilirubin Urine Urobilinogen Ur Leukocyte Esterase Urine WBC (Auto) Urine RBC (Auto) U Hyaline Cast (Auto) U Epithel Cells (Auto) Urine Bacteria (Auto) Ur Renal Epithelial Cell Nasal Screen MRSA (PCR) Lyme Disease IgG Ab Lyme Disease IgM Ab 10/05/18 10/05/18 10/05/18 20:08 20:08 20:37 WBC RBC Hgb Hct MCV MCH MCHC RDW Std Deviation RDW Coeff of Hollie Plt Count MPV Immature Gran % (Auto) Neut % (Auto) Lymph % (Auto) Butts % (Auto) Eos % (Auto) Baso % (Auto) Immature Gran # (Auto) Neut # (Auto) Lymph # (Auto) Butts # (Auto) Eos # (Auto) Baso # (Auto) PT INR Sodium Potassium Chloride Carbon Dioxide Anion Gap BUN Creatinine Est Cr Clr Drug Dosing Est GFR ( Amer) Est GFR (Non-Af Amer) BUN/Creatinine Ratio Glucose POC Glucose Estimat Average Glucose Hemoglobin A1c Calcium Magnesium Total Bilirubin AST ALT Alkaline Phosphatase Troponin I Total Protein Albumin Globulin Albumin/Globulin Ratio TSH Free T4 Thyroxine (T4) 10.2 Urine Color Yellow Urine Appearance Clear Urine pH 5.0 Ur Specific [place] 1.024 Urine Protein 1+ H Urine Glucose (UA) Trace H Urine Ketones Trace H Urine Blood Negative Urine Nitrite Negative Urine Bilirubin Negative Urine Urobilinogen Negative Ur Leukocyte Esterase Trace H Urine WBC (Auto) 10-30 H Urine RBC (Auto) 0-4 U Hyaline Cast (Auto) 1-5 U Epithel Cells (Auto) >30 H Urine Bacteria (Auto) Negative Ur Renal Epithelial Cell Not Reportable Nasal Screen MRSA (PCR) Lyme Disease IgG Ab Negative Lyme Disease IgM Ab Negative 10/05/18 10/06/18 10/06/18 23:35 00:10 02:25 WBC RBC Hgb Hct MCV MCH MCHC RDW Std Deviation RDW Coeff of Hollie Plt Count MPV Immature Gran % (Auto) Neut % (Auto) Lymph % (Auto) Butts % (Auto) Eos % (Auto) Baso % (Auto) Immature Gran # (Auto) Neut # (Auto) Lymph # (Auto) Butts # (Auto) Eos # (Auto) Baso # (Auto) PT INR Sodium Potassium Chloride Carbon Dioxide Anion Gap BUN Creatinine Est Cr Clr Drug Dosing Est GFR ( Amer) Est GFR (Non-Af Amer) BUN/Creatinine Ratio Glucose POC Glucose 202 H 203 H Estimat Average Glucose Hemoglobin A1c Calcium Magnesium Total Bilirubin AST ALT Alkaline Phosphatase Troponin I Total Protein Albumin Globulin Albumin/Globulin Ratio TSH Free T4 Thyroxine (T4) Urine Color Urine Appearance Urine pH Ur Specific [place] Urine Protein Urine Glucose (UA) Urine Ketones Urine Blood Urine Nitrite Urine Bilirubin Urine Urobilinogen Ur Leukocyte Esterase Urine WBC (Auto) Urine RBC (Auto) U Hyaline Cast (Auto) U Epithel Cells (Auto) Urine Bacteria (Auto) Ur Renal Epithelial Cell Nasal Screen MRSA (PCR) Negative Lyme Disease IgG Ab Lyme Disease IgM Ab 10/06/18 10/06/18 10/06/18 05:28 05:28 05:28 WBC 6.79 RBC 4.05 L Hgb 11.3 L Hct 33.8 L MCV 83.5 MCH 27.9 MCHC 33.4 RDW Std Deviation 41.8 RDW Coeff of Hollie 13.7 Plt Count 272 MPV 10.6 H Immature Gran % (Auto) Neut % (Auto) Lymph % (Auto) Butts % (Auto) Eos % (Auto) Baso % (Auto) Immature Gran # (Auto) Neut # (Auto) Lymph # (Auto) Butts # (Auto) Eos # (Auto) Baso # (Auto) PT INR Sodium 141 Potassium 4.1 Chloride 110 H Carbon Dioxide 25 Anion Gap 6.0 BUN 26 H Creatinine 1.04 Est Cr Clr Drug Dosing 91.6 Est GFR ( Amer) 89.4 Est GFR (Non-Af Amer) 77.1 BUN/Creatinine Ratio 24.6 H Glucose 149 H POC Glucose Estimat Average Glucose Hemoglobin A1c Calcium 8.8 Magnesium Total Bilirubin AST ALT Alkaline Phosphatase Troponin I 0.031 Total Protein Albumin Globulin Albumin/Globulin Ratio TSH Free T4 Thyroxine (T4) Urine Color Urine Appearance Urine pH Ur Specific [place] Urine Protein Urine Glucose (UA) Urine Ketones Urine Blood Urine Nitrite Urine Bilirubin Urine Urobilinogen Ur Leukocyte Esterase Urine WBC (Auto) Urine RBC (Auto) U Hyaline Cast (Auto) U Epithel Cells (Auto) Urine Bacteria (Auto) Ur Renal Epithelial Cell Nasal Screen MRSA (PCR) Lyme Disease IgG Ab Lyme Disease IgM Ab 10/06/18 10/06/18 10/06/18 05:28 05:28 07:36 WBC RBC Hgb Hct MCV MCH MCHC RDW Std Deviation RDW Coeff of Hollie Plt Count MPV Immature Gran % (Auto) Neut % (Auto) Lymph % (Auto) Butts % (Auto) Eos % (Auto) Baso % (Auto) Immature Gran # (Auto) Neut # (Auto) Lymph # (Auto) Butts # (Auto) Eos # (Auto) Baso # (Auto) PT INR Sodium Potassium Chloride Carbon Dioxide Anion Gap BUN Creatinine Est Cr Clr Drug Dosing Est GFR ( Amer) Est GFR (Non-Af Amer) BUN/Creatinine Ratio Glucose POC Glucose 130 H Estimat Average Glucose 154 Hemoglobin A1c 7.0 H Calcium Magnesium 1.7 L Total Bilirubin AST ALT Alkaline Phosphatase Troponin I Total Protein Albumin Globulin Albumin/Globulin Ratio TSH Free T4 Thyroxine (T4) Urine Color Urine Appearance Urine pH Ur Specific [place] Urine Protein Urine Glucose (UA) Urine Ketones Urine Blood Urine Nitrite Urine Bilirubin Urine Urobilinogen Ur Leukocyte Esterase Urine WBC (Auto) Urine RBC (Auto) U Hyaline Cast (Auto) U Epithel Cells (Auto) Urine Bacteria (Auto) Ur Renal Epithelial Cell Nasal Screen MRSA (PCR) Lyme Disease IgG Ab Lyme Disease IgM Ab 10/06/18 11:30 WBC RBC Hgb Hct MCV MCH MCHC RDW Std Deviation RDW Coeff of Hollie Plt Count MPV Immature Gran % (Auto) Neut % (Auto) Lymph % (Auto) Butts % (Auto) Eos % (Auto) Baso % (Auto) Immature Gran # (Auto) Neut # (Auto) Lymph # (Auto) Butts # (Auto) Eos # (Auto) Baso # (Auto) PT INR Sodium Potassium Chloride Carbon Dioxide Anion Gap BUN Creatinine Est Cr Clr Drug Dosing Est GFR ( Amer) Est GFR (Non-Af Amer) BUN/Creatinine Ratio Glucose POC Glucose 116 H Estimat Average Glucose Hemoglobin A1c Calcium Magnesium Total Bilirubin AST ALT Alkaline Phosphatase Troponin I Total Protein Albumin Globulin Albumin/Globulin Ratio TSH Free T4 Thyroxine (T4) Urine Color Urine Appearance Urine pH Ur Specific [place] Urine Protein Urine Glucose (UA) Urine Ketones Urine Blood Urine Nitrite Urine Bilirubin Urine Urobilinogen Ur Leukocyte Esterase Urine WBC (Auto) Urine RBC (Auto) U Hyaline Cast (Auto) U Epithel Cells (Auto) Urine Bacteria (Auto) Ur Renal Epithelial Cell Nasal Screen MRSA (PCR) Lyme Disease IgG Ab Lyme Disease IgM Ab Medications Administered Current Inpatient Medications Acetaminophen (Tylenol) 500 mg PO Q4H PRN PRN Reason: Unknown Stop: 11/04/18 23:47 Aspirin (Ecotrin Ectab) 81 mg PO DAILY HERNANDEZ Stop: 11/05/18 08:59 Last Admin: 10/06/18 08:41 Dose: 81 mg Documented by: Bisacodyl (Dulcolax) 10 mg ME DAILY PRN PRN Reason: Constipation Stop: 11/04/18 23:47 Cyanocobalamin (Vitamin B-12) 1,000 mcg PO DAILY HERNANDEZ Stop: 11/05/18 08:59 Last Admin: 10/06/18 08:41 Dose: 1,000 mcg Documented by: Dextrose (Dextrose 50%) 25 - 50 ml IV UD PRN; Protocol PRN Reason: Hypoglycemia Protocol Stop: 11/04/18 23:47 Docusate Sodium (Colace) 100 mg PO BID PRN PRN Reason: Constipation Stop: 11/04/18 23:47 Ferrous Sulfate (Feosol) 325 mg PO DAILY HERNANDEZ Stop: 11/05/18 08:59 Last Admin: 10/06/18 08:41 Dose: 325 mg Documented by: Finasteride (Proscar) 5 mg PO DAILY HERNANDEZ Stop: 11/05/18 08:59 Last Admin: 10/06/18 08:42 Dose: 5 mg Documented by: Glucagon (Glucagen) 1 mg SQ UD PRN; Protocol PRN Reason: Hypoglycemia Protocol Stop: 11/04/18 23:47 Glucose (Glucose 40%) 15 - 30 gm PO UD PRN; Protocol PRN Reason: Hypoglycemia Protocol Stop: 11/04/18 23:47 Glucose (Dex4 Glucose) 4 - 8 tabs PO UD PRN; Protocol PRN Reason: Hypoglycemia Protocol Stop: 11/04/18 23:47 Heparin Sodium (Porcine) (Heparin Sodium (Porcine)) 5,000 units SQ Q8 HERNANDEZ Stop: 11/05/18 05:59 Last Admin: 10/06/18 13:58 Dose: 5,000 units Documented by: Lorazepam (Ativan) 0.5 mg in 1 mls @ 1 mls/min IV Q4H PRN PRN Reason: Breakthrough Seizures Stop: 11/04/18 23:47 Ceftriaxone Sodium 1,000 mg/ (Dextrose) 50 mls @ 100 mls/hr IV Q24H [facility]; Protocol Stop: 10/16/18 01:59 Last Infusion: 10/06/18 03:30 Dose: Infused Documented by: Insulin Aspart (Novolog Flexpen) 0 units SC ACHS [facility]; Protocol Stop: 11/05/18 01:44 Last Admin: 10/06/18 11:59 Dose: Not Given Documented by: Lisinopril (Zestril) 40 mg PO DAILY [facility] Stop: 11/05/18 08:59 Last Admin: 10/06/18 08:41 Dose: 40 mg Documented by: Magnesium Hydroxide (Milk Of Magnesia) 30 ml PO DAILY PRN PRN Reason: Constipation Stop: 11/05/18 23:47 Magnesium Oxide (Mag-Ox) 400 mg PO BID [facility] Stop: 11/04/18 23:47 Last Admin: 10/06/18 08:42 Dose: 400 mg Documented by: Miscellaneous (Carbohydrates For Hypoglycemia) 15 - 30 gm PO UD PRN PRN Reason: Hypoglycemia Treatment Stop: 11/04/18 23:47 Miscellaneous Information (Consult Glycemic Management Pharmacy) 1 ea N/A UD PRN; Protocol PRN Reason: Consult Stop: 11/05/18 01:43 Polyethylene Glycol (Miralax Powder Packet) 17 gm PO DAILY PRN PRN Reason: Constipation Stop: 11/04/18 23:47 Senna/Docusate Sodium (Senokot S) 1 tab PO DAILY [facility] Stop: 11/05/18 08:59 Last Admin: 10/06/18 08:42 Dose: 1 tab Documented by: Sodium Biphosphate/Sodium Phosphate (Fleet Enema) 133 ml ME DAILY PRN PRN Reason: Constipation Stop: 11/04/18 23:47 Vitamin D (Vitamin D3) 5,000 units PO DAILY [facility] Stop: 11/05/18 08:59 Last Admin: 10/06/18 08:42 Dose: 5,000 units Documented by:
--- NOTE | 2018-10-06 15:10 | Palliative Care Progress Note ---
Date of Service October 06, 2018 Subjective Chart reviewed, pt seen and examined briefly Pt is not capable of making medical decisions. Pt named his brother, Suhail, as his help with medical decisions. Pt stated he was told at [facility] , that he did not need a pacemaker, he did know some details about his PMH such as his shunt, etc., but is not able to give details Pt gave the correct month , but year was 2008. Will try to contact pt's brother regarding any medical decisions. Agree with Neurology that we need further information from prior work up. Will cont to follow and assist with medical decision making. Physical Exam Vital Signs (Past 24 Hours): Last Vital Signs Temp 36.8 C 10/06/18 11:27 Pulse 42 L 10/06/18 11:27 Resp 20 10/06/18 11:27 BP 145/80 H 10/06/18 11:27 Pulse Ox 99 10/06/18 11:27
--- NOTE | 2018-10-06 15:30 | Pharmacy Report ---
Pharmacy Glycemic Short Note 2 - Date of Service October 06, 2018 - Glycemic Short BSG Results (Last 24 hours): 10/05/18 10/06/18 10/06/18 20:06 00:10 02:25 Glucose 147 H POC Glucose 202 H 203 H 10/06/18 10/06/18 10/06/18 05:28 07:36 11:30 Glucose 149 H POC Glucose 130 H 116 H OUTPATIENT ANTIDIABETIC REGIMEN: * Novolog SSI * glipizide 5 mg daily * metformin 850 mg qAM * A1c 7% ASSESSMENT: * 63 yr old T2DM male on Novolog plus oral anti-diabetic agents at home * BSGs at goal after receiving only 3 units of Novolog early this morning. Poor oral intake. * Will withhold basal insulin at this time since the only fasting BSG we have is 130 mg/dL. * Continue Novolog per weight/stress 2. May need to loosen carb ratio once patient starts eating. PLAN FOR INPATIENT GLYCEMIC CONTROL: * Hold outpatient oral diabetes medications * Basal insulin * none at this time * Bolus insulin * NovoLog per scale ACHS or Q6hrs while NPO * Goal Range: Low 110 mg/dL - High 140 mg/dL * Correction Factor: 25 mg/dL/unit * Nutritional / Prandial insulin per carb ratio of 1 unit per 8 grams CHO consumed thank you
--- NOTE | 2018-10-06 16:57 | Hospitalist Progress Note ---
Date of Service October 06, 2018 Assessment & Plan (1) Heart block: Heart Block: Questionable--secondary to Seizure activity Not on any AV evita blocking agents Consider pacemaker placement if appropriate Palliative care consulted to identify goals of care Appreciate Cardiology Input Will obtain old records from [facility] Avoid AV evita blocking agents Seizure like activity NPH S/P UTILITY AGENT shunting in [place] Unknown baseline mental status EEG: no focal seizure activity --CT Head:No acute intracranial hemorrhage. 2. Right parietal UTILITY AGENT shunt traverses the right lateral ventricle and tip projects over anterior medial right frontal lobe. Moderate ventricular dilatation; however, only mildly out of proportion to sulcal enlargement. Correlation with prior head CT, if available, would be of benefit. 3. White matter hypodensities which are nonspecific but favor small vessel disease. --Elevated TSH, Normal Free T4 --Seizure precuations --Ativan PRN --Appreciate Neurology Input --Obtain old records --needs follow up with Neurology/Neurosurgery upon discharge --No anti seizure meds for now --May need MRI brain when more stable Hypomagnesemia: Replace electrolytes as needed UTI::Less likely Was started on Empiric Rocephin Await for final cultures DM II: Hb A1C: 7.0 Hold PO meds Continue ISS while hospitalized HTN: Stable Continue home meds Urinary Retention: Straight Cath PRN Bladder scan PRN Frequent [place] precuations PT/OT DVT Px: Heparin SQ Code Status DNR Disposition: To be determined Subjective Patient is seen and examined at bedside No meaningful history could be obtained Patient had no seizure like activity since admission Heart rate in 40-50s Patient is oriented to person EEG showed no focal seizure activity Physical Exam Vital Signs (Past 24 Hours): Last Vital Signs Temp 36.8 C 10/06/18 15:41 Pulse 59 L 10/06/18 15:41 Resp 20 10/06/18 15:41 BP 145/67 H 10/06/18 15:41 Pulse Ox 92 10/06/18 15:41 Physical Exam: Physical Exam: Vitals signs as noted above General Appearance:Moderately built and nourished, no apparent distress Head: normocephalic, Atraumatic Eyes: normal inspection, EOMI Neck: supple, Trachea midline Respiratory/Chest: coarse breath sounds, CTA Cardiovascular: S1, S2, No murmur, +bradycardia Abdomen/GI:Soft, Non tender, Bowel sounds present Extremities/Musculoskelatal:normal inspection, no edema Neurologic/Psych:Moves all extremities, complete neuro exam coul dnot be performed Skin: normal color, warm Results & Data Laboratory Results Short CBC 10/05/18 10/06/18 Range/Units 20:06 05:28 WBC 8.48 6.79 (4.8-10.8) K/uL Hgb 12.3 L 11.3 L (14.0-18.0) g/dL Hct 36.7 L 33.8 L (42-52) % Plt Count 273 272 (130-400) K/uL BMP 10/05/18 10/06/18 20:06 05:28 Sodium 137 141 Potassium 4.5 4.1 Chloride 105 110 H Carbon Dioxide 24 25 BUN 26 H 26 H Creatinine 1.35 1.04 Glucose 147 H 149 H Calcium 9.7 8.8 Cardiac Enzymes 10/05/18 10/06/18 Range/Units 20:06 05:28 Troponin I 0.023 0.031 (0-0.045) ng/ml Liver Function 10/05/18 Range/Units 20:06 Total Bilirubin 0.4 (0.2-1) mg/dl AST 20 (15-37) U/L ALT 23 (12-78) U/L Alkaline Phosphatase 67 (45-117) U/L Albumin 3.6 (3.4-5.0) gm/dl Urine 10/05/18 Range/Units 20:37 Urine Color Yellow Urine Appearance Clear (Clear) Urine pH 5.0 (4.5-7.5) Ur Specific [place] 1.024 (1.000-1.030) Urine Protein 1+ H (Negative) Urine Glucose (UA) Trace H (Negative) Diagnostic Findings CT head: 1. No acute intracranial hemorrhage. 2. Right parietal UTILITY AGENT shunt traverses the right lateral ventricle and tip projects over anterior medial right frontal lobe. Moderate ventricular dilatation; however, only mildly out of proportion to sulcal enlargement. Correlation with prior head CT, if available, would be of benefit. 3. White matter hypodensities which are nonspecific but favor small vessel disease. CXR: 1. No acute cardiopulmonary findings. 2. Mild cardiomegaly.
[2018-10-07] MEDS: cefTRIAXone SODIUM 1,000 MG in DEXTROSE 5% 50 ML IV SCH (01:45)
[2018-10-07] MEDS: HEPARIN SOD 5,000 UNIT/0.5 ML VIAL SQ SCH ×3 (05:15→21:37)
[2018-10-07 05:31] LABS: Hematocrit (blood only) 31.8 % (42-52); Hemoglobin 10.5 g/dL (14.0-18.0); Mean Corpuscular Volume 82.6 fL (80-100); Mean Platelet Volume 10.5 fL (7.4-10.4); Platelet Count 243 K/uL (130-400); RDW Coefficient of Variation 13.6 % (11.5-14.5); RDW Standard Deviation 41.2 fL (36.4-46.3); Red Blood Count 3.85 M/uL (4.7-6.1); White Blood Count 5.62 K/uL (4.8-10.8)
[2018-10-07 05:49] LABS: BUN Creatinine Ratio 19.6 (10-20); Calcium 8.4 mg/dl (8.5-10.1); Creatinine Clr Calc Pharmacy 94.3 ml/min; Est GFR (African American) 92.6; Est GFR (Non-African American) 79.9; Magnesium 1.8 mg/dl (1.8-2.4)
[2018-10-07] MEDS: DOCUSATE SODIUM/SENNA 50/8.6MG TAB PO SCH (07:36)
[2018-10-07] MEDS: LISINOPRIL 40 MG TAB PO SCH (07:36)
[2018-10-07] MEDS: CHOLECALCIFEROL 1,000 UNITS TAB PO SCH (07:38)
[2018-10-07] MEDS: FINASTERIDE 5 MG TAB PO SCH (07:38)
[2018-10-07] MEDS: CYANOCOBALAMIN 500 MCG TABLET (VITAMIN B-12) PO SCH (07:40)
[2018-10-07] MEDS: FERROUS SULFATE 325 MG TAB PO SCH (07:41)
[2018-10-07] MEDS: ASPIRIN 81 MG ECTAB PO SCH (07:41)
[2018-10-07] MEDS: MAGNESIUM OXIDE 400 MG TAB PO SCH ×2 (07:41→20:09)
[2018-10-07] MEDS: INSULIN ASPART 100 UNITS/ML 3 ML PEN SC SCH ×4 (08:26→20:49)
--- NOTE | 2018-10-07 10:11 | Communication Note ---
Date of Service: October 07, 2018 I have seen Mr. Shaw today. He has been moved to room 229. He has been seen by cardiology. He is also been seen by palliative medicine. They like we agree that he is not competent to make medical decisions but when presented with the option of having his brother make decisions today he was adamantly against it. Even if cardiology would begin to recommend a pacemaker I do not think he is capable of making an informed decision regarding excepting or denying at and it appears that this is going to be a social service issue all before we can do mu ch else. I agree this man appears at least by the superficial history I have available, to have a progressive neurologic disorder of ill-defined type which has been of course resistant to shunting for presumptive normal pressure hydrocephalus. Again we have no prior records of imaging studies neurologic consultations neurosurgical consultations etc. available from his evaluations in [place] and I see no value in repeating these now if indeed to have been done in the recent past Currently he is less confused than he was yesterday but still knows only that he is in the hospital, does not know the location, is only vague recollection of a shunting procedure really does not recall being at [facility] rehabilitation and does not have any strong focal neurologic signs other than perhaps mild lower extremity apraxia when asked to perform certain motor movements and of course his global cognitive impairment which is fairly profound At this point neurology is going to sign off until we have information available from [place] to review. I would ask the hospitalist to make request for this information and to let us know when it arrives I do not want to start this mental anti-epileptic drugs at this point. Because of his seizure activity may well have been symptomatic bradycardia with global cerebral hypoperfusion. There is nothing on EEG that suggest anything more than a mild to moderate generalized nonspecific and nonfocal encephalopathy without associated potentially epileptogenic activity and with a marginal history in this EEG I certainly have no basis to start anticonvulsant therapy unless we would observe unequivocal clinical seizure while here at [facility]. Miguel Diaz MD
--- NOTE | 2018-10-07 17:00 | Cardiology Progress Note ---
Date of Service October 07, 2018 Assessment & Plan (1) Heart block: Stable 2-1 AV block without hemodynamic compromise at present. The patient states that he does not want to have a pacemaker performed. 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 We will continue to follow clinically. Subjective Chief complaint: Follow-up bradycardia Subjective: Patient seen and examined. He is comfortable and pleasantly confus ed. Denies any subjective complaints. Telemetry reveals sinus bradycardia with 2-1 AV block block and rate in the 40 bpm range. Blood pressure is stable with most of his systolic blood pressure readings recently in the range of the 150s. Physical Exam Vital Signs (Past 24 Hours): Last Vital Signs Temp 36.8 C 10/07/18 16:01 Pulse 37 L 10/07/18 16:01 Resp 18 10/07/18 16:01 BP 152/67 H 10/07/18 16:01 Pulse Ox 99 10/07/18 16:01 Respiratory: normal respiratory effort, lungs clear to auscultation Cardiovascular: Rate/Rhythm: regular rate and + bradycardic Heart Sounds: no murmur Extremities: no edema Gastrointestinal (Abdomen): normal bowel sounds, soft, nontender, no hepatosplenomegaly Neurologic: Confused, follows commands
--- NOTE | 2018-10-07 17:11 | Hospitalist Progress Note ---
Date of Service October 07, 2018 Assessment & Plan (1) Heart block: Heart Block: 2-1 AV block Questionable--secondary to Seizure activity Not on any AV evita blocking agents Patient prefers no pacemaker placement Palliative care consulted to identify goals of care Appreciate Cardiology Input Requested old records from [facility] Avoid AV evita blocking agents Seizure like activity NPH S/P MEDIA THEORIST AND AUTHOR OF shunting in [place] Unknown baseline mental status EEG: no focal seizure activity --CT Head:No acute intracranial hemorrhage. 2. Right parietal MEDIA THEORIST AND AUTHOR OF shunt traverses the right lateral ventricle and tip projects over anterior medial right frontal lobe. Moderate ventricular dilatation; however, only mildly out of proportion to sulcal enlargement. Correlation with prior head CT, if available, would be of benefit. 3. White matter hypodensities which are nonspecific but favor small vessel disease. --Elevated TSH, Normal Free T4 --Seizure precuations --Ativan PRN --Appreciate Neurology Input --Requested old records --needs follow up with Neurology/Neurosurgery upon discharge --No anti seizure meds for now --May need MRI brain when more stable Hypomagnesemia: Replace electrolytes as needed UTI::Ruled out Discontinue Rocephin Urine Culture: No growth to date DM II: Hb A1C: 7.0 Hold PO meds Continue ISS while hospitalized HTN: Stable Continue home meds Urinary Retention: Straight Cath PRN Bladder scan PRN Frequent [place] precuations PT/OT DVT Px: Heparin SQ Code Status DNR Disposition: To be determined Subjective Patient is seen and examined at bedside Seemed to less confused today No distress during my exam Patient had no seizure like activity since admission Heart rate in 40 Oriented to person only Requested old records Physical Exam Vital Signs (Past 24 Hours): Last Vital Signs Temp 36.8 C 10/07/18 16:01 Pulse 37 L 10/07/18 16:01 Resp 18 10/07/18 16:01 BP 152/67 H 10/07/18 16:01 Pulse Ox 99 10/07/18 16:01 Physical Exam: Physical Exam: Vitals signs as noted above General Appearance:Moderately built and nourished, no apparent distress Head: normocephalic, Atraumatic Eyes: normal inspection, EOMI Neck: supple, Trachea midline Respiratory/Chest: coarse breath sounds, CTA Cardiovascular: S1, S2, No murmur, +bradycardia Abdomen/GI:Soft, Non tender, Bowel sounds present Extremities/Musculoskelatal:normal inspection, no edema Neurologic/Psych:Moves all extremities, complete neuro exam could not be performed Skin: normal color, warm Results & Data Laboratory Results Short CBC 10/07/18 Range/Units 04:56 WBC 5.62 (4.8-10.8) K/uL Hgb 10.5 L (14.0-18.0) g/dL Hct 31.8 L (42-52) % Plt Count 243 (130-400) K/uL BMP 10/07/18 04:56 Sodium 137 Potassium 4.0 Chloride 107 Carbon Dioxide 26 BUN 20 H Creatinine 1.01 Glucose 110 H Calcium 8.4 L
[2018-10-08] MEDS: HEPARIN SOD 5,000 UNIT/0.5 ML VIAL SQ SCH ×3 (05:41→21:09)
[2018-10-08 06:17] LABS: Hematocrit (blood only) 35.7 % (42-52); Hemoglobin 12.1 g/dL (14.0-18.0)
[2018-10-08 06:45] LABS: BUN Creatinine Ratio 18.6 (10-20); Calcium 9.3 mg/dl (8.5-10.1); Creatinine Clr Calc Pharmacy 103.5 ml/min; Est GFR (African American) 103.7; Est GFR (Non-African American) 89.5; Magnesium 1.8 mg/dl (1.8-2.4); Potassium 4.1 mmol/L (3.5-5.1)
[2018-10-08] MEDS: CHOLECALCIFEROL 1,000 UNITS TAB PO SCH (08:03)
[2018-10-08] MEDS: MAGNESIUM OXIDE 400 MG TAB PO SCH ×2 (08:03→19:43)
[2018-10-08] MEDS: ASPIRIN 81 MG ECTAB PO SCH (08:03)
[2018-10-08] MEDS: CYANOCOBALAMIN 500 MCG TABLET (VITAMIN B-12) PO SCH (08:03)
[2018-10-08] MEDS: FERROUS SULFATE 325 MG TAB PO SCH (08:04)
[2018-10-08] MEDS: DOCUSATE SODIUM/SENNA 50/8.6MG TAB PO SCH (08:04)
[2018-10-08] MEDS: FINASTERIDE 5 MG TAB PO SCH (08:04)
[2018-10-08] MEDS: LISINOPRIL 40 MG TAB PO SCH (08:04)
[2018-10-08] MEDS: INSULIN ASPART 100 UNITS/ML 3 ML PEN SC SCH ×4 (08:06→20:32)
--- NOTE | 2018-10-08 09:29 | Pharmacy Report ---
Pharmacy Glycemic Short Note 2 - Date of Service October 08, 2018 - Glycemic Short BSG Results (Last 24 hours): 10/07/18 10/07/18 10/07/18 11:24 16:31 20:24 Glucose POC Glucose 142 H 150 H 137 H 10/08/18 05:14 Glucose 125 H POC Glucose OUTPATIENT ANTIDIABETIC REGIMEN: * Novolog SSI * glipizide 5 mg daily * metformin 850 mg qAM * A1c 7% ASSESSMENT: * Pt required 9 units of insulin yesterday, BSGs continue to look good. Nil changes in clinical status that require adjustments in standing insulin orders. PLAN FOR INPATIENT GLYCEMIC CONTROL: * Hold outpatient oral diabetes medications * Basal insulin * none indicated at this juncture * Bolus insulin * NovoLog per scale ACHS or Q6hrs while NPO * Goal Range: Low 110 mg/dL - High 140 mg/dL * Correction Factor: 25 mg/dL/unit * Nutritional / Prandial insulin per carb ratio of 1 unit per 8 grams CHO consumed Pharmacy will continue to follow along with you
--- NOTE | 2018-10-08 13:46 | Cardiology Progress Note ---
Date of Service October 08, 2018 Assessment & Plan (1) Heart block: Patient presented with seizure activity. He has been found to have bradycardia with 2-1 AV block, currently his ventricular rate is stable in the range of 45-50 bpm. Repeat EKG was performed today confirming the presence of 2-1 AV block. Lyme serologies performed this hospital stay were negative. I had a long discussion with the patient regarding the details of his problems with the conduction system. I specifically told him that while his heart rate is stable at this point, he could develop a progressive dysfunction of his cardiac conduction system that would lead to life-threatening bradycardia including his heart stopping. He specifically tells me that he does not want to have a pacemaker. He tells me he would not want to have CPR or have intervention if his heart "stops ". Is difficult to tell if the patient has the capacity to make such a decision, but I do not think it would be appropriate to perform pacemaker against his wishes. We will continue to follow. I am not certain if this is been a past long- standing issue that has been dealt with. The patient obviously has a complex past medical history and has a ventricular peritoneal shunt. Overall, I tend to recommend that the most appropriate thing for this patient is for transfer back to his home institution would be in his best interest. I feel we are dealing with potential end of life issues, and the providers familiar with his case and have a long standing relationship with him would be able to offer him the best guidance. Subjective Chief complaint: Follow-up bradycardia Subjective: Patient seen and examined. He is aware that he is in the hospital. He is conversant. He was able to provide his home address to me. He told me that he lives with his brother Suhail. Although his responses definitely required concentration, they were appropriate. He moved his lower extremities and his arms on command. Physical Exam Vital Signs (Past 24 Hours): Last Vital Signs Temp 36.4 C L 10/08/18 11:56 Pulse 48 L 10/08/18 11:56 Resp 18 10/08/18 11:56 BP 132/80 10/08/18 11:56 Pulse Ox 100 10/08/18 11:56 Constitutional: + ill appearing; no acute distress Respiratory: normal respiratory effort, lungs clear to auscultation Cardiovascular: Rate/Rhythm: + bradycardic Extremities: + edema No murmurs Neurologic: Cognitive impairment noted, but patient capable of following com mands, moves all 4 extremities
--- NOTE | 2018-10-08 17:09 | Hospitalist Progress Note ---
Date of Service October 08, 2018 Assessment & Plan (1) Heart block: Heart Block: 2-1 AV block Questionable--secondary to Seizure activity Lyme Screen: Negative Not on any AV evita blocking agents Patient prefers no pacemaker placement or CPR Palliative care consulted to identify goals of care Appreciate Cardiology Input Requested old records from [facility]-- pending Avoid AV evita blocking agents Seizure like activity NPH S/P HISTORICAL MANUSCRIPTS CURATOR shunting in [place] Unknown baseline mental status EEG: no focal seizure activity --CT Head:No acute intracranial hemorrhage. 2. Right parietal HISTORICAL MANUSCRIPTS CURATOR shunt traverses the right lateral ventricle and tip projects over anterior medial right frontal lobe. Moderate ventricular dilatation; however, only mildly out of proportion to sulcal enlargement. Correlation with prior head CT, if available, would be of benefit. 3. White matter hypodensities which are nonspecific but favor small vessel disease. --Elevated TSH, Normal Free T4 --Seizure precuations --Ativan PRN --Appreciate Neurology Input --Requested old records --needs follow up with Neurology/Neurosurgery upon discharge --No anti seizure meds for now --May need MRI brain when more stable --Mental status continues to improve Hypomagnesemia: Replace electrolytes as needed Monitor UTI::Ruled out Discontinue Rocephin Urine Culture: No growth to date DM II: Hb A1C: 7.0 Hold PO meds Continue ISS while hospitalized HTN: Stable Continue home meds Urinary Retention: Straight Cath PRN [place] precuations PT/OT DVT Px: Heparin SQ Code Status DNR Disposition: To be determined Subjective Patient is seen and examined at bedside Mental status continues to improve Patient had no seizure like activity since admission Bradycardia on exam Oriented to person and place today Requested old records from [facility] Clearly states that he would not prefers to have pacemaker placement No new complaints Physical Exam Vital Signs (Past 24 Hours): Last Vital Signs Temp 36.4 C L 10/08/18 15:56 Pulse 48 L 10/08/18 15:56 Resp 16 10/08/18 15:56 BP 164/78 H 10/08/18 15:56 Pulse Ox 100 10/08/18 15:56 Physical Exam: Physical Exam: Vitals signs as noted above General Appearance:Moderately built and nourished, no apparent distress Head: normocephalic, Atraumatic Eyes: normal inspection, EOMI Neck: supple, Trachea midline Respiratory/Chest: coarse breath sounds, CTA Cardiovascular: S1, S2, No murmur, +bradycardia Abdomen/GI:Soft, Non tender, Bowel sounds present Extremities/Musculoskelatal:normal inspection, no edema Neurologic/Psych:Grossly no focal deficits Skin: normal color, warm Results & Data Laboratory Results Short CBC 10/08/18 Range/Units 05:14 Hgb 12.1 L (14.0-18.0) g/dL Hct 35.7 L (42-52) % BMP 10/08/18 05:14 Sodium 139 Potassium 4.1 Chloride 109 H Carbon Dioxide 25 BUN 17 Creatinine 0.92 Glucose 125 H Calcium 9.3
[2018-10-09] MEDS: HEPARIN SOD 5,000 UNIT/0.5 ML VIAL SQ SCH ×3 (05:16→20:58)
[2018-10-09 05:50] LABS: Hematocrit (blood only) 32.2 % (42-52); Hemoglobin 10.8 g/dL (14.0-18.0); Mean Corpuscular Hgb Conc 33.5 g/dL (32-36); Mean Corpuscular Volume 81.7 fL (80-100); Mean Platelet Volume 10.6 fL (7.4-10.4); Nucleated RBC # (auto) 0.02 K/uL (0-0); Nucleated RBC % (auto) 0.3 %; Platelet Count 245 K/uL (130-400); RDW Coefficient of Variation 13.5 % (11.5-14.5); RDW Standard Deviation 41.1 fL (36.4-46.3); Red Blood Count 3.94 M/uL (4.7-6.1); White Blood Count 4.59 K/uL (4.8-10.8)
[2018-10-09 06:14] LABS: BUN Creatinine Ratio 18.4 (10-20); Creatinine Clr Calc Pharmacy 108.2 ml/min; Est GFR (African American) 107.5; Est GFR (Non-African American) 92.7; Potassium 3.9 mmol/L (3.5-5.1)
[2018-10-09] MEDS: LISINOPRIL 40 MG TAB PO SCH (07:45)
[2018-10-09] MEDS: MAGNESIUM OXIDE 400 MG TAB PO SCH ×2 (07:45→20:12)
[2018-10-09] MEDS: ASPIRIN 81 MG ECTAB PO SCH (07:45)
[2018-10-09] MEDS: CHOLECALCIFEROL 1,000 UNITS TAB PO SCH (07:46)
[2018-10-09] MEDS: FERROUS SULFATE 325 MG TAB PO SCH (07:46)
[2018-10-09] MEDS: FINASTERIDE 5 MG TAB PO SCH (07:47)
[2018-10-09] MEDS: CYANOCOBALAMIN 500 MCG TABLET (VITAMIN B-12) PO SCH (07:47)
[2018-10-09] MEDS: DOCUSATE SODIUM/SENNA 50/8.6MG TAB PO SCH (07:48)
[2018-10-09] MEDS: INSULIN ASPART 100 UNITS/ML 3 ML PEN SC SCH ×4 (07:49→20:58)
--- NOTE | 2018-10-09 10:13 | Pharmacy Report ---
Pharmacy Glycemic Short Note 2 - Date of Service October 09, 2018 - Glycemic Short BSG Results (Last 24 hours): 10/08/18 10/08/18 10/08/18 11:02 16:26 20:09 Glucose POC Glucose 201 H 111 H 234 H 10/09/18 10/09/18 05:15 07:00 Glucose 149 H POC Glucose 139 H OUTPATIENT ANTIDIABETIC REGIMEN: * Novolog SSI * glipizide 5 mg daily * metformin 850 mg qAM * A1c 7% ASSESSMENT: 10/09 * Fasting BSG acceptable this AM (FBS 139) with no basal insulin on board. * Post-prandial BSGs elevated 2 of 3 yesterday, but had been well controlled w/ same Novolog doses the prior day. * Renal fxn adequate and tolerating PO diet. No IV contrast administered in last 48 hrs. Will resume home dose of Metformin, however will give with dinner * BSG pattern over last 24 hrs suggests he may require more prandial insulin. Will not change Novolog doses today however but will monitor post-prandial trend today. PLAN FOR INPATIENT GLYCEMIC CONTROL: * Resume metformin, 850mg daily with dinner * Basal insulin (no change) * none at this time * Bolus insulin (no change) * NovoLog per scale ACHS or Q6hrs while NPO * Goal Range: Low 110 mg/dL - High 140 mg/dL * Correction Factor: 25 mg/dL/unit * Nutritional / Prandial insulin per carb ratio of 1 unit per 8 grams CHO consumed Pharmacy will continue to follow along with you
--- NOTE | 2018-10-09 13:13 | Cardiology Progress Note ---
Date of Service October 09, 2018 Assessment & Plan (1) Heart block: Outside medical records from [facility] were reviewed. The patient has had 2 recent admissions there in July 2018. He was initially admitted on 07/12/18 after what was felt to be seizure activity. The progress notes describe CT findings of enlarged cerebral ventricles. The patient was also noted to have an irregular, bradycardic cardiac rhythm. 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 Both prior to and after the shunt procedure, bradycardia was noted, and there cardiology notes that described once rhythm with long first-degree AV block, Mobitz type I second-degree AV block (Wenckebach block), 2-1 AV block. EKG tracings dated 07/13/18 revealed 2-1 AV block with ventricular rate in the upper 40-50 bpm range. There is another EKG dated 08/08/18 which once again feels 2-1 AV block with ventricular rate in the upper 40-50 bpm range. These tracings are unchanged compared to what is observed during this patient's hospital stay. At this time, I am unable to determine if the patient has been in 2-1 heart block since July or if this resolved and came back again. Cardiology progress notes describe consideration of placing a temporary pacemaker but this apparently was felt to not be necessary during the past outside admissions, and permanent pacemaker was also felt not to be indicated. Interestingly, the patient was admitted to this institution on 10/05/18 with seizure-like activity observed at [facility] sounds identical to the presenting index hospital stay in early July 2018. At this point, I believe the patient could have very well had worsening intermittent bradycardia causing whole-body including cerebral hypoperfusion, or this could have been a primary neurologic event both then and now. At present the patient's hemodynamic was stable, and as far as I can tell, he has relatively tolerated the bradycardia for 3 months. Although worsening intermittent bradycardia may explain these acute episodes, I do not think heart rate support would help his other chronic issues of his cognitive decline and general physical decline in terms of his ability to ambulate. Once again, patient declines pacemaker. I would personally have a low threshold for transferring the patient back to [facility] for ongoing workup with the same team including neurosurgery and cardiology who is cared for these issues on a chronic basis for this patient. Subjective Chief complaint: Follow-up consultation for bradycardia Subjective: Patient is comfortable lying in bed. He has no subjective complaints. No witnessed seizure activity since he has been admitted. Blood pressure remained stable. Telemetry reveals ongoing 2-1 AV block with ventricular rate in the range of 50-54 bpm at present. Physical Exam Vital Signs (Past 24 Hours): Last Vital Signs Temp 36.7 C 10/09/18 10:50 Pulse 52 L 10/09/18 10:50 Resp 20 10/09/18 10:50 BP 152/68 H 10/09/18 10:50 Pulse Ox 98 10/09/18 10:50 Constitutional: + ill appearing (Chronically ill in appearance without acute distress) Respiratory: normal respiratory effort, lungs clear to auscultation Cardiovascular: Rate/Rhythm: + bradycardic Heart Sounds: no murmur and no cardiac rub Vessels: no JVD Gastrointestinal (Abdomen): normal bowel sounds, soft, nontender, no hepatosplenomegaly Neurologic: Follows commands, moves all 4 extremities
--- NOTE | 2018-10-09 14:14 | Palliative Care Consultation ---
Date of Consultation October 09, 2018 Assessment & Plan (1) Goals of care, counseling/discussion: -63 year old male patient with recently diagnosed normal pressure hydrocephalus s/p CREPING MACHINE OPERATOR shunt placement in July 2018 at [facility], presented to the hospital from [facility] with seizure-like activity and second degree heart block. Patient was recently in [facility] with UTI and seizure, and was discharged to [facility] for rehab. He had a witnessed seizure at [facility] and came to [facility]. Old records from [facility] just arrived here today. Essentially, patient was diagnosed with NPH in July 2018, had CREPING MACHINE OPERATOR shunt placed. He had known seizure activity at that time as well, as well as a CVA. He was having bradycardia and Type 1 2nd degree AVB as well-- network consultant at [facility] did not think patient needed pacemaker at that time. He was eventually discharged. Now, during this admission here at [facility], patient has global cognitive deficits. EEG showed no seizure activity, neurology is following. CT head negative for anything acute. Cardiology is consulted as well who believes patient may need pacemaker at this point, but has been continuously declining device placement. There was some question of patient's ability to make medical decisions, but his cognition has somewhat improved since admission. Palliative care has been consulted to assist with establishing goals of care. -We met briefly with patient on Tuesday. At that time, he was oriented to person only, could answer some questions appropriately but really did not seem able to make medical decisions. Today, orientation is improved. Patient new his name, knew he was in the hospital for seizure activity, and could tell me some details about his shunt and hydrocephalus. Patient stated again to me that he did NOT want a pacemaker even if it was recommended. The pacemaker will not help his overall condition and patient stated he didn't want to go through further procedures. I reiterated that his dysrhythmia could turn into a potentially life-threatining arrhyrthmia and patient stated, "Well that's ok." -I asked patient how aggressively he wants his conditions to be treated. In regards to the NPH, I asked hypothetically if there were further surgeries, procedures, etc. that could be offered, if he would want them to be done. Patient stated, "I don't think I want all of that. Just let me know if it's time to call the undertaker." -Asked if there was anyone who could help him make medical decisions. Patient stated, "Call my brother, Suhail. He knows about my health problems." -Spoke at length with patient's brother, Suhail. Suhail states that prior to this whole episode occurring in July, patient was a "normally" functioning man. Patient has always taken very good care of himself, was a very meticulous person with hygiene, housekeeping, etc. For the last month, however, patient has turned into a "different person." Suhail reports that patient has been very angry, agitated, and purposely hostile towards him. Patient shines flashlights in his brothers eyes in the middle of the night, yells, throws things, orders things online then accuses his brother of stealing money from him, etc. -Suhail also states that patient is no longer able to care for himself. He needs help with toileting, bathing, dressing, etc. When Suhail tries to help him, he gets angry and yells or throws things. Suhail does not think he can continue to care for patient at home. -In regards to goals of care, Suhail states he really doesn't know what patient's wishes would be at this point. He was not surprised to hear that patient told me he did not want aggressive treatment, and he knows that patient is DNR. I asked if any of these things the patient said about goals of care were out of character for the patient. Suhail stated that everything the patient does and says for the last few months are out of character for him, so it's hard to discern. -At this time, given patient's improved orientation status and ability to answer open-ended questions for me, I do think that he is able to make medical deci sions for himself. Having said that, I would still keep his brother Suhail close in the loop prior to making major decisions. -Uncertain of any further neurologic intereventions that can even be offered at this point, if any. If this neurologic decline is related to a mixture of the NPH, CVA, and possibility of this bradycardia causing hypopurfusion to his brain, I don't know what can be done considering he already has a shunt and is declining pacemaker. Patient's brother is aware that patient is declining pacemaker as well. -We will continue to follow and wait for neurology's input as well. Will assist with any decision making and provide supportive care. (2) Normal pressure hydrocephalus: (3) Heart block: (4) Seizure: Supervising Physician Co-Signing Physician Notes Chart reviewed, patient seen and examined, collaborated with DEMOND Romeo PE: NAD Respiratory: Unlabored CV: Pulse regular, bradycardic Abdomen: Soft, nontender Neuro: Patient able to participate in medical decision making, for complicated medical decisions would need assist from family Agree with above note, assessment and plan as per DEMOND Romeo Will continue to follow and assist with medical decision making History of Present Illness Attending Physician: Carlos Chadwick MD History of Present Illness This 63 year old male patient with recently diagnosed normal pressure hydrocephalus s/p CREPING MACHINE OPERATOR shunt placement in July 2018 at [facility], presented to the hospital from [facility] with seizure-like activity and second degree heart block. Patient was recently in [facility] with UTI and seizure, and was discharged to [facility] for rehab. He had a witnessed seizure at [facility] and came to [facility]. Old records from [facility] just arrived here today. Essentially, patient was diagnosed with NPH in July 2018, had CREPING MACHINE OPERATOR shunt placed. He had known seizure activity at that time as well, as well as a CVA. He was having bradycardia and Type 1 2nd degree AVB as well-- network consultant at [facility] did not think patient needed pacemaker at that time. He was eventually discharged. Now, during this admission here at [facility], patient has global cognitive deficits. EEG showed no seizure activity, neurology is following. CT head negative for anything acute. Cardiology is consulted as well who believes patient may need pacemaker at this point, but has been continuously declining device placement. There was some question of patient's ability to make medical decisions, but his cognition has somewhat improved since admission. Palliative care has been consulted to assist with establishing goals of care. Thank you kindly for this consult. I will follow. Allergies Allergy/AdvReac Type Severity Reaction Status Date / Time tamsulosin Allergy Unknown Unknown Verified 10/05/18 21:35 Home Medications Home Medications Medication Instructions Recorded Confirmed Type acetaminophen 500 mg PO Q4H PRN 10/05/18 10/05/18 History aspirin 81 mg PO DAILY 10/05/18 10/05/18 History bisacodyl 10 mg AL DAILY PRN 10/05/18 10/05/18 History cefuroxime axetil 500 mg PO Q12H 10/05/18 10/05/18 History cholecalciferol (vitamin D3) 5,000 units PO DAILY 10/05/18 10/05/18 History [Vitamin D3] cyanocobalamin (vitamin B-12) 1,000 mcg PO DAILY 10/05/18 10/05/18 History dextrose [Glucose Gel] 1 tube PO DIRECTED PRN 10/05/18 10/05/18 History docusate sodium 100 mg PO BID PRN 10/05/18 10/05/18 History ferrous sulfate 325 mg PO DAILY 10/05/18 10/05/18 History finasteride 5 mg PO DAILY 10/05/18 10/05/18 History glipizide 5 mg PO DAILY 10/05/18 10/05/18 History glucagon (human recombinant) 1 mg SUBCUT DIRECTED PRN 10/05/18 10/05/18 History [Glucagon Emergency Kit (human)] heparin (porcine) 5,000 unit SUBCUT Q12H 10/05/18 10/05/18 History insulin aspart U-100 [Novolog 1 sliding scale dose SUBCUT ACHS 10/05/18 10/05/18 History U-100 Insulin aspart] lisinopril 40 mg PO DAILY 10/05/18 10/05/18 History magnesium hydroxide [Milk Of 30 ml PO DAILY PRN 10/05/18 10/05/18 History Magnesia Concentrated] metformin 850 mg PO QAM 10/05/18 10/05/18 History polyethylene glycol 3350 [Miralax] 17 g PO DAILY PRN 10/05/18 10/05/18 History sennosides-docusate sodium 1 tab PO DAILY 10/05/18 10/05/18 History [Senokot-S] sodium phosphates [Fleet Enema] 133 ml AL DAILY PRN 10/05/18 10/05/18 History Patient History Medical History Seizure (Chronic) Social History Communication Ability: Effective Beliefs That Will Affect Care: None Current Living Situation: Rehab Other Information That Helps Us Care for You: No Feels Safe at Home: Yes Safety Concerns: Feels Safe At This Time Smoking Status: Never smoker Hx Alcohol Use: No Hx Substance Use: No Review of Systems Constitutional: + weakness Respiratory: no cough and no dyspnea Cardiovascular: no chest pain and no edema Gastrointestinal: no abdominal pain and no nausea Genitourinary (Male): + urinary incontinence Neurologic: + generalized weakness, + seizure-like activity and + memory loss Psychiatric: no anxiety Physical Exam Vital Signs (Past 24 Hours): Last Vital Signs Temp 36.7 C 10/09/18 10:50 Pulse 52 L 10/09/18 10:50 Resp 20 10/09/18 10:50 BP 152/68 H 10/09/18 10:50 Pulse Ox 98 10/09/18 10:50 Constitutional: well developed and well nourished; no acute distress ENMT: Ears: no hearing impairment Neck: normal visual inspection Respiratory: normal respiratory effort, lungs clear to auscultation Cardiovascular: Rate/Rhythm: + bradycardic Heart Sounds: no murmur Vessels: dorsalis pedis pulses present Gastrointestinal (Abdomen): Inspection/Auscultation: abdomen normal to inspection and normal bowel sounds Percussion/Palpation: abdomen soft; abdomen nontender Skin: no rashes, warm and dry Neurologic: moves all extremities and awake Motor/Sensory: no sensory deficit Psychiatric: Orientation: alert, oriented to person and oriented to place Affect: euthymic affect Thought Process: goal directed thought process Time Spent Midlevel 75 minutes with >50% of time spent at bedside with patient and on phone with family and physician discussing condition, GOC, and plan.
--- NOTE | 2018-10-09 16:07 | Hospitalist Progress Note ---
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 2. Right parietal ASSISTANT CURATOR shunt traverses the right lateral ventricle and tip projects over anterior medial right frontal lobe. Moderate ventricular dilatation; however, only mildly out of proportion to sulcal enlargement. Correlation with prior head CT, if available, would be of benefit. 3. White matter hypodensities which are nonspecific but favor small vessel disease. --Elevated TSH, Normal Free T4 --Seizure precautions --Ativan PRN --Appreciate Neurology Input --Was on Keppra 500mg BID while at [facility] --Was not getting any anti seizure meds at [facility] --needs follow up with Neurology/Neurosurgery upon discharge --Will discuss with Neurology for further recommendations --Mental status seemed to be back to baseline -- Continue Aspirin, Statin Hypomagnesemia: Replace electrolytes as needed Monitor UTI::Ruled out Discontinue Rocephin Urine Culture: No growth to date DM II: Hb A1C: 7.0 Hold PO meds Continue ISS while hospitalized HTN: Stable Continue home meds H/O Urinary Retention: Straight Cath PRN Allergic to flomax [place] precuations PT/OT DVT Px: Heparin SQ Code Status DNR Disposition: To be determined Subjective Patient is seen and examined at bedside Intermittently agitated today as per RN Mental status seemed to be back to baseline Patient had no seizure like activity since admission Bradycardia on exam-- Also noted on old records Patient prefers no pacemaker placement and seemed to understand the consequences No new complaints Physical Exam Vital Signs (Past 24 Hours): Last Vital Signs Temp 36.7 C 10/09/18 10:50 Pulse 52 L 10/09/18 10:50 Resp 20 10/09/18 10:50 BP 152/68 H 10/09/18 10:50 Pulse Ox 98 10/09/18 10:50 Physical Exam: Physical Exam: Vitals signs as noted above General Appearance:Moderately built and nourished, no apparent distress Head: normocephalic, Atraumatic Eyes: normal inspection, EOMI Neck: supple, Trachea midline Respiratory/Chest: coarse breath sounds, CTA Cardiovascular: S1, S2, No murmur, +bradycardia Abdomen/GI:Soft, Non tender, Bowel sounds present Extremities/Musculoskelatal:normal inspection, no edema Neurologic/Psych:Grossly no focal deficits Skin: normal color, warm Results & Data Laboratory Results Short CBC 10/09/18 Range/Units 05:15 WBC 4.59 L (4.8-10.8) K/uL Hgb 10.8 L (14.0-18.0) g/dL Hct 32.2 L (42-52) % Plt Count 245 (130-400) K/uL BMP 10/09/18 05:15 Sodium 139 Potassium 3.9 Chloride 106 Carbon Dioxide 25 BUN 16 Creatinine 0.88 Glucose 149 H Calcium 9.0
[2018-10-09] MEDS: METFORMIN HCL 850 MG TAB PO SCH (16:37)
[2018-10-10] MEDS: HEPARIN SOD 5,000 UNIT/0.5 ML VIAL SQ SCH ×2 (05:09→13:48)
[2018-10-10] MEDS: MAGNESIUM SULFATE / D5W 1 GM/100 ML BAG IV SCH ×2 (08:26→09:42)
[2018-10-10] MEDS: ASPIRIN 81 MG ECTAB PO SCH (08:26)
[2018-10-10] MEDS: MAGNESIUM OXIDE 400 MG TAB PO SCH (08:26)
[2018-10-10] MEDS: FERROUS SULFATE 325 MG TAB PO SCH (08:26)
[2018-10-10] MEDS: CYANOCOBALAMIN 500 MCG TABLET (VITAMIN B-12) PO SCH (08:26)
[2018-10-10] MEDS: CHOLECALCIFEROL 1,000 UNITS TAB PO SCH (08:27)
[2018-10-10] MEDS: FINASTERIDE 5 MG TAB PO SCH (08:27)
[2018-10-10] MEDS: LISINOPRIL 40 MG TAB PO SCH (08:27)
[2018-10-10] MEDS: DOCUSATE SODIUM/SENNA 50/8.6MG TAB PO SCH (08:28)
[2018-10-10] MEDS: INSULIN ASPART 100 UNITS/ML 3 ML PEN SC SCH ×2 (08:59→11:53)
[2018-10-10] MEDS ORDERED: ATORVASTATIN 40 MG TAB PO SCH (09:00)
[2018-10-10] MEDS ORDERED: LANTUS PER UNIT CHARGE SQ SCH (09:00)
--- NOTE | 2018-10-10 11:16 | Pharmacy Report ---
Pharmacy Glycemic Short Note 2 - Date of Service October 10, 2018 - Glycemic Short BSG Results (Last 24 hours): 10/09/18 10/09/18 10/09/18 11:06 16:12 20:23 POC Glucose 209 H 175 H 186 H 10/10/18 07:21 POC Glucose 161 H OUTPATIENT ANTIDIABETIC REGIMEN: * Novolog SSI * glipizide 5 mg daily * metformin 850 mg qAM * A1c 7% The patient is currently receiving: * Basal insulin: None * Correctional Insulin: Novolog Correction per scale ACHS Goal Range: Low 110 mg/dL - High 140 mg/dL Correction Factor: 20 mg/dL/unit * Prandial insulin: Per carb ratio of 1 unit per 7 grams CHO consumed * Oral Agents: Metformin 850mg daily w/ dinner ASSESSMENT: 10/10 * Fasting BSG elevated today despite resuming metformin. Metformin effects may be delayed for 3+ days. * Fasting BSG 161 today and has been trending higher each AM. Will initiate basal insulin today * Post-prandial BSGs elevated 2 of 3 yesterday. However post-prandial rise was not too large. Perhaps the addition of basal insulin today will help to control these post-prandial BSGs today. 10/09 * Fasting BSG acceptable this AM (FBS 139) with no basal insulin on board. * Post-prandial BSGs elevated 2 of 3 yesterday, but had been well controlled w/ same Novolog doses the prior day. * Renal fxn adequate and tolerating PO diet. No IV contrast administered in last 48 hrs. Will resume home dose of Metformin, however will give with dinner * BSG pattern over last 24 hrs suggests he may require more prandial insulin. Will not change Novolog doses today however but will monitor post-prandial trend today. PLAN FOR INPATIENT GLYCEMIC CONTROL: * Continue metformin 850mg daily with dinner * Basal insulin (new) * Lantus 10 units daily in the AM- reevaluate each AM * Bolus insulin (no change) * NovoLog per scale ACHS or Q6hrs while NPO * Goal Range: Low 110 mg/dL - High 140 mg/dL * Correction Factor: 20 mg/dL/unit * Nutritional / Prandial insulin per carb ratio of 1 unit per 7 grams CHO consumed Pharmacy will continue to follow along with you
--- NOTE | 2018-10-10 12:18 | Hospitalist Progress Note ---
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 2. Right parietal CONVENTION PLANNER shunt traverses the right lateral ventricle and tip projects over anterior medial right frontal lobe. Moderate ventricular dilatation; however, only mildly out of proportion to sulcal enlargement. Correlation with prior head CT, if available, would be of benefit. 3. White matter hypodensities which are nonspecific but favor small vessel disease. --Elevated TSH, Normal Free T4 --Seizure precautions --Ativan PRN --Appreciate Neurology Input --Was on Keppra 500mg BID while at [facility] --Was not getting any anti seizure meds at [facility] --needs follow up with Neurology/Neurosurgery upon discharge --Discussed with Neurology--No plan to start on any anti seizure meds as unclear why patient was not on them at Rehab facility --Mental status is back to baseline -- Continue Aspirin, Statin --Discussed with that patient would need FU with Neurology and likely need to be restarted on Anti seizure meds Hypomagnesemia: Replace electrolytes as needed Monitor UTI::Ruled out Discontinue Rocephin Urine Culture: No growth to date DM II: Hb A1C: 7.0 Hold PO meds Continue ISS while hospitalized HTN: Stable Continue home meds H/O Urinary Retention: Straight Cath PRN Allergic to flomax [place] precautions PT/OT DVT Px: Heparin SQ Code Status DNR Disposition: Plan to discharge to Acute Rehab Facility today Subjective Patient is seen and examined at bedside Doing well today No new complaints Mental status is back to baseline Patient had no seizure like activity since admission Bradycardia on exam-- Also noted on old records Patient prefers no pacemaker placement Discussed with Neurology--No plan to start on anti seizure meds Also discussed with at Rehab Facility Physical Exam Vital Signs (Past 24 Hours): Last Vital Signs Temp 36.4 C L 10/10/18 11:26 Pulse 46 L 10/10/18 11:26 Resp 20 10/10/18 11:26 BP 94/58 L 10/10/18 11:51 Pulse Ox 98 10/10/18 11:26 Physical Exam: Physical Exam: Vitals signs as noted above General Appearance:Moderately built and nourished, no apparent distress Head: normocephalic, Atraumatic Eyes: normal inspection, EOMI Neck: supple, Trachea midline Respiratory/Chest: coarse breath sounds, CTA Cardiovascular: S1, S2, No murmur, +bradycardia Abdomen/GI:Soft, Non tender, Bowel sounds present Extremities/Musculoskelatal:normal inspection, no edema Neurologic/Psych:Grossly no focal deficits Skin: normal color, warm
--- NOTE | 2018-10-10 12:28 | Discharge Summary ---
Date of Service October 10, 2018 Admission HPI Per Admitting Provider 63-year-old male with a past medical history of diabetes, hydrocephalus, seizure disorder per ER doc but I do not see any seizure medications on board, UTI and sepsis, iron deficiency anemia, benign prostatic hypertrophy, diabetes, hypertension, urine retention, stool incontinence, [facility] for suspected seizure and was found to be in heart block. The patient is a poor historian, old records revealed that he was in [facility] after a bout of UTI and sepsis and was getting physical therapy and occupational therapy for ADLs. He lives with his brother and used to be independent with his ADLs. Currently he needs a walker to walk. Admission Exam Per Admitting Provider Physical Exam Gen-AAO x 1, NAD, Afebrile, Pleasant Head-NCAT, EOMI, PERRLA, Anicteric Sclera, No Posterior Pharyngeal Erythema Neck-Supple, No JVD, No Thyromegaly, No Masses, No LAD, No Bruits Lungs-Clear to Auscultation Bilaterally, No Rales, No Rhonchi, No Wheezing, No Crepitus Chest-No S4, +S1, +S2, No S3, No Murmurs, No Rubs, No Gallops, No Ectopy Abdomen-Soft, Bowel Sounds Present, Non Tender, Non Distended, No Hepatomegaly, No Splenomegaly, No Palpable Masses, No Rebound, No Rigidity, No Guarding Musculoskeletal-Full Range of Motion Bilaterally, No CVAT Extremities-No Cyanosis, No Clubbing, No Edema Nuero-Cranial Nerves II-XII grossly intact, Motor WNL, DTRs WNL, Strength WNL, No Focal Psych-Normal Mood Principal Diagnosis Discharge Information Discharge Diagnosis Possible Seizure 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 No acute intracranial hemorrhage. 2. Right parietal SCREEN PRINTER shunt traverses the right lateral ventricle and tip projects over anterior medial right frontal lobe. Moderate ventricular dilatation; however, only mildly out of proportion to sulcal enlargement. Correlation with prior head CT, if available, would be of benefit. 3. White matter hypodensities which are nonspecific but favor small vessel disease. CXR: 1. No acute cardiopulmonary findings. 2. Mild cardiomegaly. Ordered Studies 10/05/18 19:48 CT head/brain wo con Stat Hospital Course (1) Heart block: Heart Block: 2-1 AV block Questionable--secondary to Seizure activity Lyme Screen: Negative Not on any AV evita blocking agents Patient prefers no pacemaker placement or CPR Palliative care on board Appreciate Cardiology Input Reviewed old records from [facility] Heart block also noted in old records Avoid AV evita blocking agents Needs Follow up with Cardiology upon discharge Seizure disorder--Noted on old records Seizure like activity on presentation NPH S/P SCREEN PRINTER shunt in Jul 2018 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 2. Right parietal SCREEN PRINTER shunt traverses the right lateral ventricle and tip projects over anterior medial right frontal lobe. Moderate ventricular dilatation; however, only mildly out of proportion to sulcal enlargement. Correlation with prior head CT, if available, would be of benefit. 3. White matter hypodensities which are nonspecific but favor small vessel disease. --Elevated TSH, Normal Free T4 --Seizure precautions --Ativan PRN --Appreciate Neurology Input --Was on Keppra 500mg BID while at [facility] --Was not getting any anti seizure meds at [facility] --needs follow up with Neurology/Neurosurgery upon discharge --Discussed with Neurology--No plan to start on any anti seizure meds as unclear why patient was not on them at Rehab facility --Mental status is back to baseline -- Continue Aspirin, Statin --Discussed with that patient would need FU with Neurology and likely need to be restarted on Anti seizure meds Hypomagnesemia: Replace electrolytes as needed Monitor UTI::Ruled out Discontinue Rocephin Urine Culture: No growth to date DM II: Hb A1C: 7.0 Hold PO meds Continue ISS while hospitalized HTN: Stable Continue home meds H/O Urinary Retention: Straight Cath PRN Allergic to flomax [place] Fall precautions PT/OT DVT Px: Heparin SQ Code Status DNR Disposition: Plan to discharge to Acute Rehab Facility today Total Time Total Time Spent Total Time Spent (In Minutes): 39 minutes Total Time Includes: Examination of the Patient, Discharge Planning, Medication Reconciliation, Communication With Other Providers and Other Discharge Plan Discharge Items Patient Disposition: Transfer Inpatient Rehab Fac Reason For Visit: POSSIBLE SEIZURE,HEART BLOCK Discharge Diagnosis: Possible Seizure 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 Discharge Goals: Decrease discomfort, Improve disease control and Improve function Activity: Resume your previous activity Exercise/Sports: Gradually increase as tolerated Non-emergency contact: Primary Care Provider, Braille Teacher and Neurologist Call non-emergency contact if: you have any medication questions, your symptoms worsen, your pain is not controlled, your pain is worsening, your pain is unusual for you, your pain is concerning for you and you have a fever Follow-up/Referrals: PCP,NO [Primary Care Provider] - Diet: Carb Consistent or DM2 and Heart Healthy Addtl Provider Instructions: Follow up with at Rehab Facility Follow up with Your Braille Teacher in 2 weeks Follow up with your Neurosurgeon and Neurologist in 1 week as advised Discuss with your Physician the need for starting on anti seizure medications as advised Discuss with your Braille Teacher regarding Pacemaker placement if you consider to have the procedure Seek immediate medical attention if your symptoms reoccur or worsen Prescriptions: New atorvastatin 40 mg Tablet 40 mg PO QAM 30 Days Qty: 30 RF: 0 magnesium oxide 400 mg (241.3 mg magnesium) Tablet 400 mg PO BID 30 Days Qty: 60 RF: 0 Continued polyethylene glycol 3350 [Miralax] 17 gram Powder In Packet 17 g PO DAILY PRN (Reason: Constipation) RF: 0 lisinopril 20 mg Tablet 40 mg PO DAILY RF: 0 sennosides-docusate sodium [Senokot-S] 8.6-50 mg Tablet 1 tab PO DAILY RF: 0 dextrose [Glucose Gel] 40 % Gel 1 tube PO DIRECTED PRN (Reason: Hypoglycemia) RF: 0 metformin 850 mg Tablet 850 mg PO QAM RF: 0 cyanocobalamin (vitamin B-12) 1,000 mcg Tablet 1,000 mcg PO DAILY RF: 0 aspirin 81 mg Tablet,Delayed Release (Dr/Ec) 81 mg PO DAILY RF: 0 acetaminophen 500 mg Tablet 500 mg PO Q4H PRN (Reason: Unknown) RF: 0 Novolog U-100 Insulin aspart 100 unit/mL Solution 1 sliding scale dose SUBCUT ACHS RF: 0 bisacodyl 10 mg Suppository 10 mg DC DAILY PRN (Reason: Constipation) RF: 0 ferrous sulfate 325 mg (65 mg iron) Tablet 325 mg PO DAILY RF: 0 Fleet Enema 19-7 gram/118 mL Enema 133 ml DC DAILY PRN (Reason: Constipation) RF: 0 Glucagon Emergency Kit (human) 1 mg Recon Soln 1 mg subcut DIRECTED PRN (Reason: Hypoglycemia) RF: 0 docusate sodium 100 mg Capsule 100 mg PO BID PRN (Reason: Constipation) RF: 0 heparin (porcine) 5,000 unit/mL Solution 5,000 unit SUBCUT Q12H RF: 0 finasteride 5 mg Tablet 5 mg PO DAILY RF: 0 glipizide 5 mg Tablet 5 mg PO DAILY RF: 0 Milk Of Magnesia Concentrated 2,400 mg/10 mL Suspension 30 ml PO DAILY PRN (Reason: Constipation) RF: 0 cholecalciferol (vitamin D3) [Vitamin D3] 5,000 unit Tablet 5,000 units PO DAILY RF: 0 Discontinued cefuroxime axetil 250 mg Tablet 500 mg PO Q12H RF: 0 Stand-Alone Forms: [facility] Discharge Orders: Discharge Order (Routine); Ordered 10/10/18 Ordered By: Carlos Chadwick Skilled Items Patient informed of condition?: Yes DNR: Yes Discharge Level of Care: Acute rehab Communicable Disease: No Discharge Prognosis: Stable Admission Data Admit Date/Time: 10/05/18 22:40 Attending Provider: Carlos Chadwick Admit Provider: Narciso Chaves Primary Care Provider: PCP,NO Other Providers: Narciso Chaves ; Devin Wall ; Philippe Newsome ; Jair Wade ; Ynug Licea ; Shravan Lehman ; Sammy Romeo ; Shelbie Chicas ; Kitty Faustin ; Kitty Rausch ; Debby Bermudez Service: Telemetry Other Interventions: Discharge Summary Assessment (RN) Last Done: 10/10/18 13:20 Pending Studies at Discharge: No
[2018-10-10] MEDS: METFORMIN HCL 850 MG TAB PO SCH (15:35)
== END 2018-10-10 16:02 | DRG 101 ==
LOC: ED 19:02 → 2S 22:40